=== PATIENT | female | born 1960 | race Caucasian/White ===

== ENCOUNTER → 2019-09-18 13:19 | Outpatient (BNVA) | payer MEDICARE, MEDICAID, SELFPAY | PROVIDERS: Family Provider Nurse Practitioner Family; PCP Nurse Practitioner Family; Visit Provider Nurse Practitioner Family | DX: I10 Essential (primary) hypertension (principal); F32.9 Major depressive disorder, single episode, unspecified; K21.9 Gastro-esophageal reflux disease without esophagitis; M25.561 Pain in right knee; G89.29 Other chronic pain; M25.562 Pain in left knee | CPT/HCPCS: 80053; 83036; 83735; 85025 ==

== ENCOUNTER → 2019-10-26 14:15 | Outpatient (BNVA) | payer MEDICARE, MEDICAID, SELFPAY | PROVIDERS: Family Provider Nurse Practitioner Family; PCP Nurse Practitioner Family; Visit Provider Anesthesiology | DX: G89.29 Other chronic pain (principal); M54.5 Low back pain; M25.561 Pain in right knee; M25.562 Pain in left knee; Z79.891 Long term (current) use of opiate analgesic | CPT/HCPCS: 99214 ==

== ENCOUNTER 2020-03-01 17:27 | Emergency (ER) | payer MEDICARE, MEDICAID, SELFPAY ==
[2020-03-01 17:43] VITALS: BP 161/122; PULSE 90; RESP 20; TEMP 37.1; O2SAT 95; BMI 42.9
--- NOTE | 2020-03-01 18:19 | W.ED.DENTAL ---
HPI - Dental/Oral General: Chief complaint: Dental/Oral Stated complaint: COV Time Seen by Provider: 03/01/20 17:51 History of Present Illness: HPI Narrative: Patient is a 59-year-old female who comes to the ED with dental pain and swelling. She was seen by her PCP in [facility] 3 days ago and was given a prescription for clindamycin and told to schedule appointment with dentist. Patient says she has been taking the clindamycin and redness on face and swelling has gotten worse after 3 days. She says her pain also has increased. She contacted her PCP and they told her to come here to the ED for reevaluation. Denies any fever, nausea/vomiting, bladder or bowel symptoms. Associated symptoms: Denies fever(s) or odynophagia Review of Systems Const: Denies: fever(s), chills or fatigue Eyes: Denies: change in vision or eye discomfort ENMT: Reports: mouth pain and dental pain; Denies: throat pain, odynophagia, nasal discharge or nasal congestion Card: Denies: chest pain, palpitations, edema, swelling of feet/ankles, dyspnea on exertion or orthopnea Resp: Denies: dyspnea, productive cough or non-productive cough GI: Denies: abdominal pain, nausea, vomiting, diarrhea, constipation or hematochezia : Denies: flank pain, dysuria or hematuria Musc: Denies: neck pain, back pain or extremity swelling Skin/Breast: Denies: rash or new lesions Neuro: Denies: headache(s), numbness in extremities or weakness in extremities PFS ED PFSH: Medical History Chronic pain of both knees Patient has fair control of pain with current treatment through pain management. Patient is taking [place] and Ultram Depression Patient is well controlled with Cymbalta 80mg. Encounter for long-term use of opiate analgesic GERD (gastroesophageal reflux disease) Patient is well controlled with Prilosec 40mg daily Hypertension Patient is well controlled with Lisinopril 20mg Opioid contract exists Social History Smoking and tobacco status: current some day smoker Quit status (tobacco): has quit using tobacco Second hand smoke exposure: No Smoking risk assessment/counseling performed?: No Alcohol intake: never Desire information about alcohol rehabilitation?: No Counseling given: No Desire information about substance/drug rehabilitation?: No Counseling given: No History of recent travel: No Physical Exam Const: COMMON NORMALS: no acute distress, patient oriented x3 and alert GENERAL APPEARANCE: cooperative; not comfortable (pt in some pain and discmfort) HENMT: COMMON NORMALS: normocephalic HEAD & SCALP: normocephalic MOUTH: Normal oral and palatal mucosa present TEETH & GINGIVA: Yes abnormal tooth and associated gingiva lower right central incisor tender and with associated gingival edema and Yes caries THROAT: posterior oropharynx normal and uvula midline Eye: COMMON NORMALS: Equal, round and reactive pupils present PUPIL: Yes Equal, round and reactive pupils present Neck/C-Spine: COMMON NORMALS: supple GENERAL: Yes normal visual inspection Resp: COMMON NORMALS: normal respiratory effort, No retractions, No use of accessory muscles and clear to auscultation bilaterally AUSCULTATION: clear to auscultation bilaterally Cardio: COMMON NORMALS: regular rate, regular rhythm, S1 normal heart sound present, S2 normal heart sound present, No gallops present (Cardio), No clicks present (Cardio), No murmurs present (Cardio) and Peripheral pulses 2+ throughout RATE: regular rate RHYTHM: regular rhythm HEART SOUNDS: S1 normal heart sound present and S2 normal heart sound present PERIPHERAL PULSES: Peripheral pulses 2+ throughout GI: COMMON NORMALS: Normal to inspection, nondistended, normoactive bowel sounds present, Soft to palpation, non-tender and no masses PALPATION: Yes Soft to palpation : COMMON NORMALS: Yes no CVA tenderness BLADDER/KIDNEY EXAM: Yes no CVA tenderness Back/Pelvis: COMMON NORMALS: no CVA tenderness Extremity: COMMON NORMALS: normal to inspection and no pedal edema Neuro: COMMON NORMALS: patient oriented x3 and moves all extremities SENSORIUM/ORIENTATION: Yes alert Skin: NARRATIVE SKIN EXAM: Skin on the chin was red and warm. Redness and warmth extended down into the neck as well. Is also tender to the touch. GENERAL SKIN EXAM: dry skin Course Vital Signs: Vital signs: Vital Signs Temperature 98.7 F 03/01/20 17:43 Pulse Rate 98 03/01/20 20:56 Respiratory Rate 14 03/01/20 20:56 Blood Pressure 118/74 06/19/20 20:56 Pulse Oximetry 93 03/01/20 20:56 MDM - Dental/Oral MDM Narrative: Medical decision making narrative: Patient is a 59-year-old female that was sent over to us by PCP for further evaluation of dental pain and infection. Physical exam showed extensive dental caries and some erythema and warmth and tenderness on the chin and neck. No airway obstruction or trouble breathing. white blood cell count was 14.2. CT of the neck litis and suspected 1.0 cm abscess along the anterior aspect of themandible, just to the right of midline.Periodontal disease and periapical lucency within multiple lower anterior teeth. Patient was put on IV antibiotics while here in the ED. She was discharged with dental abscess and told to contact dentist to set up an appointment for further evaluation and treatment. She was told to continue taking her previously prescribed clindamycin. Patient understood and agreed with plan. Lab Data: Attestation: I reviewed the patient's lab results. Labs: Lab Results 03/01/20 03/01/20 Range/Units 18:50 18:50 WBC 14.2 H (4.0-10.0) 10^3/ uL RBC 5.12 (4.1-5.3) 10^6/u L Hgb 13.2 (11.5-15.3) g/dL Hct 43.7 (37.0-47.0) % MCV 85.4 (81-99) fL MCH 25.8 L (28.0-34.0) pg MCHC 30.2 (30.0-36.0) g/dL RDW 14.6 (12.1-15.1) % Plt Count 246 (130-400) 10^3/c mm MPV 11.1 H (7.4-10.4) fL Neut % (Auto) 75.7 % Lymph % (Auto) 15.7 % [place] % (Auto) 6.3 % Eos % (Auto) 1.2 % Baso % (Auto) 0.7 % Neut # (Auto) 10.7 H (1.8-7.7) 10^3/u L Lymph # (Auto) 2.2 (0.8-4.8) 10^3/u L [place] # (Auto) 0.9 (0.2-0.9) 10^3/u L Eos # (Auto) 0.2 (0.0-0.8) 10^3/u L Baso # (Auto) 0.1 (0.0-0.1) 10^3/u L Nucleated RBC % (a uto) 0 % Nucleated RBCs # 0.0 /100WBC Sodium 135 L (136-145) mmol/L Potassium 4.8 (3.5-5.1) mmol/L Chloride 95 L (98-107) mmol/L Carbon Dioxide 25 (22-29) mmol/L Anion Gap 19.8 H (5-19) BUN 17 (6-20) mg/dL Creatinine 0.7 (0.5-0.9) mg/dL GFR Calculation 85.9 L (90-130) mL/min Glucose 119 H (65-115) mg/dL Calculated Osmolal ity 278 L (285-295) mOsm/k g Calcium 9.4 (8.5-10.5) mg/dL Total Bilirubin 0.3 (0.15-1.2) mg/dL AST 15 (0-32) U/L ALT 11 (0-33) U/L Alkaline Phosphata se 92 (35-105) IU/L Total Protein 8.0 (6.6-8.7) g/dL Albumin 4.1 (3.5-5.2) g/dL Globulin 3.9 (1.3-4.6) g/dL Imaging Data^: Other CT: Attestation: I personally reviewed and interpreted this imaging study as follows: Radiologist's impression: [place] [address] CT Scan Report Signed Patient: Barb Parmar Unit #: [id number] : 1960 Age/Sex: 59 / F ADM Date: 03/01/20 Loc: ER Room/Bed: Attending Dr: Ordering Provider/Ordering MD: Brendon Anne Date of Service: 03/01/20 Procedure(s): CT neck w con* [id number] Accession Number(s): [id number] Report Number: [id number] PROCEDURE INFORMATION: Exam: CT Neck With Contrast Exam date and time: 03/01/2020 6:46 PM Age: 59 years old Clinical indication: Mass, lump, or swelling in neck; Patient HX: C/O facial, jaw, and neck swelling; Additional info: Erythema and swelling-neck and mandible TECHNIQUE: Imaging protocol: Computed tomography images of the neck with intravenous contrast. Radiation optimization: All CT scans at this facility use at least one of these dose optimization techniques: automated exposure control; mA and/or kV adjustment per patient size (includes targeted exams where dose is matched to clinical indication); or iterative reconstruction. Contrast material: OMNI 300; Contrast volume: 95 ml; Contrast route: INTRAVENOUS (IV); COMPARISON: No relevant prior studies available. RADIATION DOSE METRICS: Total DLP (mGy-cm): 771.69 FINDINGS: Nasopharynx: Unremarkable. Dental: Multiple missing upper and lower teeth. There is lucency surrounding the roots of multiple lower anterior teeth. There is destruction of the anterior bone cortex surround the roots of the lower left 1st and 2nd teeth. Oropharynx: Unremarkable. No significant tonsillar enlargement. Hypopharynx: Unremarkable. Larynx: Unremarkable. Normal epiglottis. Retropharyngeal space: Unremarkable. Submandibular/Parotid glands: Normal. Glands are normal in size. Thyroid: Normal. No enlarged or calcified nodules. Lymph nodes: Subcentimeter cervical and submandibular lymph nodes are most likely reactive. Subcentimeter mediastinal lymph nodes are most likely reactive. Trachea: Visualized trachea is unremarkable. Lungs: Unremarkable as visualized. Bones/joints: C6 corpectomy with metal cage. Anterior fusion hardware spanning C5-C7. Vasculature: Right carotid bulb plaque without stenosis. Soft tissues: Mild skin thickening and subcutaneous soft tissue stranding along the anterior body of the mandible. There is a 1.0 cm focal oval fluid density along the anterior aspect of the mandible, just to the right of midline. The suspicious for a small abscess. CT/CT neck w con* [id number] IMPRESSION: 1. Cellulitis and suspected 1.0 cm abscess along the anterior aspect of the mandible, just to the right of midline. 2. Periodontal disease and periapical lucency within multiple lower anterior teeth. Radiation Dose CTDIVOL = (mGy): DLP = 771.69 (mGy-cm) Dictated By: Donal Doan Signed By: Donal Doan Signed Date/Time: 03/01/201931 DD/ 1931 Discharge Plan Discharge Patient Disposition: Home, Self-Care Clinical Impression: Dental abscess, Dental caries Condition: Stable Prescriptions: No Action Complete Multivitamin Tablet 1 tab PO QAM RF: 0 diclofenac sodium 1 % gel 2 gm TOPICAL BID PRN (Reason: joint pain) Qty: 100 RF: 5 duloxetine 20 mg capsule,delayed release(DR/EC) 20 mg PO DAILY 30 Days Qty: 30 RF: 1 duloxetine 60 mg capsule, delayed rel sprinkle 60 mg PO DAILY 90 Days Qty: 90 RF: 1 clindamycin HCl 300 mg capsule 300 mg PO TID 10 Days Qty: 30 RF: 0 hydrocodone-acetaminophen 10-325 mg tablet 1 tab PO TID PRN (Reason: pain) 30 Days Qty: 90 RF: 0 hydrocodone-acetaminophen 10-325 mg tablet 1 tab PO TID PRN (Reason: pain) 30 Days Qty: 90 RF: 0 tramadol 50 mg tablet 100 mg PO TID PRN (Reason: pain) 30 Days Qty: 180 RF: 1 baclofen 20 mg tablet 20 mg PO TID PRN (Reason: Bilateral knee pain) 30 Days Qty: 90 RF: 0 cyclobenzaprine 10 mg tablet See Rx Instructions PO BID PRN (Reason: muscle spasm) 30 Days Qty: 60 RF: 1 omeprazole 40 mg capsule,delayed release(DR/EC) 40 mg PO .q24 30 Days Qty: 30 RF: 2 lisinopril 20 mg tablet 20 mg PO DAILY 30 Days Qty: 30 RF: 2 Discharge Orders: Discharge Order (Routine); Ordered 03/01/20 Ordered By: Brendon Anne Referrals: VIPIN Deleon, INTERN PRODUCT MARKETING MANAGER [Primary Care Provider] - Discharge Diet: Regular Discharge Activity: Resume usual activity Patient Instructions: Dental Abscess (ED), Dental Caries (ED) Activity Restrictions/Additional Instructions: Continue taking all home medications including your clindamycin. Take your previously prescribed pain meds to help with pain. Drink plenty of fluids and stay hydrated. Call dentist to set up JOE to get an appointment scheduled for you to be evaluated. Discharge Date/Time: 03/01/20 19:58 Coding Level of Care Code ED [place] Line Crew Member for Keving Fwd Exam Comprehensive
[2020-03-01 18:56] VITALS: RESP 18; O2SAT 98
[2020-03-01] MEDS: morphine 4 mg/mL SDV 1 mL 2 MG IVP (18:56)
[2020-03-01] MEDS: ondansetron 2 mg/ML SDV 2 mL 4 MG IVP (18:57)
[2020-03-01] MEDS: clindamycin 600 MG/50 ML PREMIX 100 MG IV (18:58)
--- NOTE | 2020-03-01 19:03 | PC.NURSE ---
report received from JACKSON Bethea and care transferred to JACKSON Pettit
[2020-03-01 19:04] LABS: Basophils # 0.1 10^3/uL (0.0-0.1); Basophils % 0.7 %; Eosinophils # 0.2 10^3/uL (0.0-0.8); Eosinophils % 1.2 %; Hematocrit 43.7 % (37.0-47.0); Hemoglobin 13.2 g/dL (11.5-15.3); Lymphocytes # 2.2 10^3/uL (0.8-4.8); Lymphocytes % 15.7 %; Mean Corpuscular HGB Conc 30.2 g/dL (30.0-36.0); Mean Corpuscular Hemoglobin 25.8 pg (28.0-34.0); Mean Corpuscular Volume 85.4 fL (81-99); Mean Platelet Volume 11.1 fL (7.4-10.4); Monocytes # 0.9 10^3/uL (0.2-0.9); Monocytes % 6.3 %; Neutrophils # 10.7 10^3/uL (1.8-7.7); Neutrophils % 75.7 %; Nucleated Red Blood Cells % 0 %; Platelet Count 246 10^3/cmm (130-400); Red Blood Count 5.12 10^6/uL (4.1-5.3); Red Cell Distribution Width 14.6 % (12.1-15.1); White Blood Count 14.2 10^3/uL (4.0-10.0)
[2020-03-01] MEDS: iohexol 300 mg/mL 100 mL Btl 95 ML IV (19:14)
[2020-03-01 19:45] LABS: Alanine Aminotransferase 11 U/L (0-33); Albumin Level 4.1 g/dL (3.5-5.2); Alkaline Phosphatase 92 IU/L (35-105); Anion Gap 19.8 (5-19); Aspartate Amino Transferase 15 U/L (0-32); Blood Urea Nitrogen 17 mg/dL (6-20); Calcium 9.4 mg/dL (8.5-10.5); Carbon Dioxide 25 mmol/L (22-29); Chloride 95 mmol/L (98-107); Globulin 3.9 g/dL (1.3-4.6); Glomerular Filtration Rate 85.9 mL/min (90-130); Glucose 119 mg/dL (65-115); Osmolality Calculated 278 mOsm/kg (285-295); Potassium 4.8 mmol/L (3.5-5.1); Sodium 135 mmol/L (136-145); Total Bilirubin 0.3 mg/dL (0.15-1.2)
[2020-03-01 20:11] VITALS: BP 188/101; PULSE 96; RESP 14; O2SAT 93
[2020-03-01] MEDS: ketorolac 30 mg/mL INJ IVP (20:30)
[2020-03-01 20:56] VITALS: BP 118/74; PULSE 98; RESP 14; O2SAT 93
== END 2020-03-01 19:58 | disposition home or self-care (01) ==
PROVIDERS: Emergency Provider Physician Assistant; Family Provider Nurse Practitioner Family; PCP Nurse Practitioner Family
DX: K04.7 Periapical abscess without sinus (principal); K02.9 Dental caries, unspecified; I10 Essential (primary) hypertension; F17.210 Nicotine dependence, cigarettes, uncomplicated
CPT/HCPCS: 12345; 70491; 80053; 85025; 87040; 96365; 96375; 99283; J1885; J2270; J2405; J3490; J7030; Q9967

== ENCOUNTER 2020-03-04 15:34 | Outpatient (CLI) | payer MEDICARE, MEDICAID, SELFPAY ==
--- NOTE | 2020-03-04 15:59 | MR_ITS ---
WS: [id number] MRI LUMBAR SPINE NONCONTRAST TECHNIQUE: Sagittal T1, T2 and STIR imaging. Axial T1 and T2 imaging. CLINICAL INFORMATION: M54.5 Low back pain COMPARISON: MRI July 28, 2018 FINDINGS: Mild lumbar curve. No acute compression. No high-grade central canal stenosis. Mild spondylitic aguilar es lumbar spine with disc bulging. Prior postoperative changes L4-5 hemilaminectomy with partial disc ectomy. Spinal canal stenosis has been decompressed.No evidence recurrent disc extrusion or recurrent stenosis at L4-5 T12-L1: Mild disc bulging with mild central canal stenosis and slight effacement of the ventral theca l sac. L1-L2: Mild annular bulging. Mild right and no significant left foraminal narrowing. Mild facet arthr opathy. L2-L3: Mild annular bulging with slight narrowing of the subarticular recess bilaterally. Mild left g reater than right foraminal narrowing. Mild facet arthropathy. L3-L4: Mild annular bulging with moderate central canal stenosis. Right foraminal protrusion contacts the exiting right L3 nerve root with moderate right and mild left foraminal narrowing. Moderate face t arthropathy. L4-L5: Postoperative changes hemilaminectomy and Partial discectomy. Right foraminal protrusion with moderate right foraminal narrowing contacts the exiting right L4 nerve root. Left foramen is patent. Moderate facet arthropathy. L5-S1: Mild annular bulging with a tiny annular fissure. Mild right greater than left foraminal narro wing. Visualized pelvic bony structures: Normal. Paravertebral soft tissues: Normal. Overall no significant changes since July 28, 2018 MR/MR lumbar spine wo con* [id number] IMPRESSION: 1. Mild lumbar curve. No acute compression. No high-grade central canal stenosi s. 2. Postoperative changes L4-5 hemilaminectomy and partial discectomy unchanged from previous. No recurrent stenosis at this level. 3. Right foraminal protrusion L4-5 impinges the exiting right L4 nerve root. Re commend correlation for right L4 nerve root symptoms. This is unchanged 4. Mild central canal stenosis at T12-L1 and L2-L3 unchanged. 5. Moderate central canal stenosis L3-4 with crowding of the cauda equina nerve rootlets, unchanged. 6. Unchanged multilevel mild to moderate foraminal narrowing at left L2-3, righ t L3-4, and bilateral L5-S1 right greater than left. 7. Cholelithiasis. This can be followed up with ultrasound.
== END 2020-03-04 15:35 | disposition home or self-care (01) ==
LOC: RADWPI 15:41
PROVIDERS: Family Provider Nurse Practitioner Family; PCP Nurse Practitioner Family; Visit Provider Nurse Practitioner Family
DX: M51.26 Other intervertebral disc displacement, lumbar region (principal); M48.04 Spinal stenosis, thoracic region; M48.061 Spinal stenosis, lumbar region without neurogenic claudication; K80.20 Calculus of gallbladder without cholecystitis without obstruction
CPT/HCPCS: 72148

== ENCOUNTER 2020-03-26 12:49 | Outpatient (CLI) | payer MEDICARE, MEDICAID, SELFPAY ==
--- NOTE | 2020-03-26 13:05 | MR_ITS ---
WS: [id number] INDICATION: Low back pain. Follow-up to noncontrast MRI March 04, 2020 TECHNIQUE: Sagittal and axial postgadolinium T1 imaging with fat saturation technique FINDINGS: Comparison MRI March 04, 2020. Images somewhat limited due to motion artifact. Evidence of prior postoperative changes L4-5 hemilaminectomy and partial discectomy. No evidence of r ecurrent disc extrusion at the L4-5 level. Enhancing normal postoperative changes. Right foraminal L4-5 protrusion impinges the exiting L4 nerve root. This is unchanged. Mild central canal stenosis at T12-L1 and L2-3 unchanged. Moderate to severe central canal stenosis a t L3-4 with crowding of the cauda equina nerve rootlets is stable. In addition, mild clumping of the cauda equina nerve rootlets at L4-5 can be seen with arachnoiditis. Otherwise no changes from the rec ent examination. MR/MR lumbar spine w con [id number] IMPRESSION: 1. Prior postoperative changes L4-5 laminectomy defects with partial discectom y. No recurrent disc extrusion 2. Moderate to severe central canal stenosis L3-4 due to prominent dorsal epid ural fat in combination with mild disc bulging and moderate facet arthropathy. Crowding of the cauda equina nerve rootlets at this level. 3. Mild clumping of the cauda equina nerve rootlets at L4-5 can be seen with a rachnoiditis. 4. No evidence of recurrent disc extrusion. 5. Other findings unchanged from previous.
--- NOTE | 2020-03-26 13:45 | XR_ITS ---
WS: [id number] Lumbar spine with flexion, extension, and neutral lateral, 03/26/2020 Clinical Data: Low back pain Comparison: Lateral lumbar spine, 11/14/2015. Findings: No compression fractures or subluxation is seen. Degenerative disc narrowing is seen at all disc leve ls from L2-L3 through L4-L5. There is straightening of the lateral lumbar spine.No subluxation is pre sent. On flexion and extension there is limitation of motion. XR/XR lumbar spine f/e only [id number] Impression: 1. Osteoarthritic change from L2 through L5. 2. Multilevel degenerative disc narrowing. 3. Limitation of motion on flexion and extension.
== END 2020-03-26 12:50 ==
LOC: RADWPI 12:52
PROVIDERS: Family Provider Nurse Practitioner Family; PCP Nurse Practitioner Family; Visit Provider Licensed Practical Nurse
DX: G89.29 Other chronic pain (principal); M51.17 Intervertebral disc disorders with radiculopathy, lumbosacral region; M48.062 Spinal stenosis, lumbar region with neurogenic claudication; M25.561 Pain in right knee; M25.562 Pain in left knee; M96.1 Postlaminectomy syndrome, not elsewhere classified; F17.210 Nicotine dependence, cigarettes, uncomplicated; Z98.890 Other specified postprocedural states; Z79.891 Long term (current) use of opiate analgesic
CPT/HCPCS: 72120; 72149; 99213; 99214; A9579

== ENCOUNTER → 2020-05-06 14:55 | Outpatient (BNVA) | payer MEDICARE, MEDICAID, SELFPAY | PROVIDERS: Family Provider Nurse Practitioner Family; PCP Nurse Practitioner Family; Visit Provider Licensed Practical Nurse | DX: M51.17 Intervertebral disc disorders with radiculopathy, lumbosacral region (principal); M48.062 Spinal stenosis, lumbar region with neurogenic claudication; M96.1 Postlaminectomy syndrome, not elsewhere classified; Z98.890 Other specified postprocedural states; E66.01 Morbid (severe) obesity due to excess calories; Z68.41 Body mass index [BMI] 40.0-44.9, adult; F17.210 Nicotine dependence, cigarettes, uncomplicated | CPT/HCPCS: 99213 ==

== ENCOUNTER → 2020-05-22 10:26 | Outpatient (BNVA) | payer MEDICARE, MEDICAID, SELFPAY | PROVIDERS: Family Provider Nurse Practitioner Family; PCP Nurse Practitioner Family; Visit Provider Anesthesiology | DX: G89.29 Other chronic pain (principal); M48.062 Spinal stenosis, lumbar region with neurogenic claudication; M51.17 Intervertebral disc disorders with radiculopathy, lumbosacral region; M96.1 Postlaminectomy syndrome, not elsewhere classified; M25.561 Pain in right knee; M25.562 Pain in left knee; F17.210 Nicotine dependence, cigarettes, uncomplicated; Z99.89 Dependence on other enabling machines and devices; Z98.890 Other specified postprocedural states; Z79.891 Long term (current) use of opiate analgesic | CPT/HCPCS: 99214 ==

== ENCOUNTER 2020-07-02 16:33 | Emergency (ER) | payer MEDICARE, MEDICAID, SELFPAY ==
[2020-07-02 17:06] VITALS: BP 159/91; PULSE 72; RESP 20; TEMP 36.7; O2SAT 97; BMI 44.6
--- NOTE | 2020-07-02 18:15 | W.ED.BACK ---
HPI - Back Pain/Injury General: Chief Complaint: Back Pain/Injury Stated Complaint: kidney pain Time Seen by Provider: 07/02/20 18:11 History of Present Illness: HPI Narrative: Presents with sciatica but want to be checked for renal failure said she is feeling kind of weird she said last time she went to renal failure she presented the same way said her sciatica started to act up to the left side MD elicited complaint: back pain Pertinent past history: prior back pain Onset (ago): day(s) Timing: constant Severity: moderate Similar Symptoms Previously: Yes Quality: sharp and aching Location: left lower back Radiation: left upper leg and left leg below the knee Exacerbating factors: movement Relieving factors: immobilization Context: unknown Associated symptoms: Reports other (Patient says she just feels weird and want to check for renal failure apparently has history of this); Deny abdominal pain, chills, fever(s), nausea or vomiting Work related injury: No Review of Systems Const: Denies: fever(s), chills or body aches Eyes: Denies: change in vision or blurry vision ENMT: Denies: throat pain or nasal congestion Card: Denies: chest pain or dyspnea on exertion Resp: Denies: dyspnea, productive cough or non-productive cough GI: Denies: abdominal pain, nausea or vomiting Musc: Reports: back pain; Denies: extremity pain Skin/Breast: Denies: rash Neuro: Denies: headache(s) Psych: Reports: visual hallucinations; Denies: anxiety or depression Alfred/Lymph: Denies: easy bruising PFS ED PFSH: Medical History (Updated 07/02/20 @ 19:33 by LEONORA Osborne) Chronic pain of both knees Patient has fair control of pain with current treatment through pain management. Patient is taking [place] and Ultram Depression Patient is well controlled with Cymbalta 80mg. Encounter for long-term use of opiate analgesic GERD (gastroesophageal reflux disease) Patient is well controlled with Prilosec 40mg daily Hypertension Patient is well controlled with Lisinopril 20mg Intervertebral disc disorder with radiculopathy of lumbosacral region Lumbar post-laminectomy syndrome 01/13/2016 bilateral L4-L5 hemilaminotomy/discectomy/foraminotomy Lumbar stenosis with neurogenic claudication Morbid obesity with BMI of 40.0-44.9, adult Opioid contract exists Surgical History History of cervical spinal surgery 08/04/2010 Dr. Aleksander Juarez. C5-C6, C6-C7 ACDFF, C6 corpectomy. History of lumbar surgery 01/13/2016 Dr. Aleksander Juarez. Bilateral L4-L5 hemilaminotomy/discectomy/ foraminotomy History of shoulder surgery Family History Other Family history non-contributory Social History (Updated 05/22/20 @ 11:23 by Brenda Carrillo LPN) Smoking and tobacco status: current some day smoker Alcohol intake: never Household members: spouse Marital status: Current occupational status: disabled History of recent travel: No Physical Exam Const: COMMON NORMALS: no acute distress, average body habitus and patient oriented x3 HENMT: COMMON NORMALS: normocephalic HEAD & SCALP: normal to inspection and normocephalic FACE & SINUS: normal facial exam Eye: COMMON NORMALS: conjunctivae normal GENERAL EYE: appearance normal, both eyes and all related structures CONJUNCTIVA: Yes conjunctivae normal Neck/C-Spine: COMMON NORMALS: no JVD Chest: COMMONS NORMALS: normal inspection of the chest Resp: COMMON NORMALS: normal respiratory effort and clear to auscultation bilaterally AUSCULTATION: clear to auscultation bilaterally Cardio: COMMON NORMALS: no JVD, regular rate and regular rhythm RATE: regular rate RHYTHM: regular rhythm GI: COMMON NORMALS: Normal to inspection, nondistended, normoactive bowel sounds present Extremity: COMMON NORMALS: normal to inspection and full ROM OTHER: Tenderness left sciatic buttock down to upper leg Neuro: COMMON NORMALS: patient oriented x3 Course Vital Signs: Vital signs: Vital Signs Temperature 98.1 F 07/02/20 17:06 Pulse Rate 72 07/02/20 17:06 Respiratory Rate 20 H 07/02/20 17:06 Blood Pressure 159/91 07/02/20 17:06 Pulse Oximetry 97 07/02/20 17:06 MDM - Back Pain/Injury Lab Data: Labs: Lab Results 07/02/20 07/02/20 07/02/20 Range/Units 18:12 18:30 18:30 WBC 9.4 (4.0-10.0) 10^3/ uL RBC 5.64 H (4.1-5.3) 10^6/u L Hgb 13.7 (11.5-15.3) g/dL Hct 45.5 (37.0-47.0) % MCV 80.7 L (81-99) fL MCH 24.3 L (28.0-34.0) pg MCHC 30.1 (30.0-36.0) g/dL RDW 16.9 H (12.1-15.1) % Plt Count 263 (130-400) 10^3/c mm MPV 11.7 H (7.4-10.4) fL Neut % (Auto) 61.8 % Lymph % (Auto) 27.9 % [place] % (Auto) 6.8 % Eos % (Auto) 2.4 % Baso % (Auto) 0.9 % Neut # (Auto) 5.79 (1.8-7.7) 10^3/u L Lymph # (Auto) 2.6 (0.8-4.8) 10^3/u L [place] # (Auto) 0.6 (0.2-0.9) 10^3/u L Eos # (Auto) 0.2 (0.0-0.8) 10^3/u L Baso # (Auto) 0.1 (0.0-0.1) 10^3/u L Nucleated RBC % (a uto) 0 % Nucleated RBCs # 0.0 /100WBC Sodium 134 L (136-145) mmol/L Potassium 4.4 (3.5-5.1) mmol/L Chloride 96 L (98-107) mmol/L Carbon Dioxide 27 (22-29) mmol/L Anion Gap 15.4 (5-19) BUN 14 (6-20) mg/dL Creatinine 0.8 (0.5-0.9) mg/dL GFR Calculation 73.4 L (90-130) mL/min Glucose 115 (65-115) mg/dL Calculated Osmolal ity 279 L (285-295) mOsm/k g Calcium 9.7 (8.5-10.5) mg/dL Total Bilirubin 0.4 (0.15-1.2) mg/dL AST 18 (0-32) U/L ALT 13 (0-33) U/L Alkaline Phosphata se 94 (35-105) IU/L Total Protein 7.7 (6.6-8.7) g/dL Albumin 4.4 (3.5-5.2) g/dL Globulin 3.3 (1.3-4.6) g/dL Urine Color Yellow (Yellow) Urine Appearance Hazy A (CLEAR) Urine pH 7 (5-7) Ur Specific Gravit y 1.005 (1.005-1.030) Urine Protein Neg (Negative) Urine Glucose (UA) Norm (Normal) Urine Ketones Negative (Negative) Urine Blood Neg (Negative) Urine Nitrate Negative (Negative) Urine Bilirubin Neg (Negative) Urine Urobilinogen Norm (Negative) mg/dL Ur Leukocyte Ilda ase Negative (Negative) Urine RBC None (0-2) /hpf Urine WBC 0-4 H (0-5) /hpf Ur Squamous Epith Cells 15-25 H (0-5) /hpf Amorphous Sediment Not Reportable Urine Bacteria 2+ H (NONE) /hpf Discharge Plan Discharge Patient Disposition: Home Clinical Impression: Sciatic leg pain Condition: Stable Prescriptions: No Action Complete Multivitamin Tablet 1 tab PO QAM RF: 0 cyanocobalamin (vitamin B-12) Tablet,Chewable PO DAILY RF: 0 calcium carbonate [Calcium 500] 500 mg calcium (1,250 mg) tablet,chewable 500 mg PO DAILY RF: 0 melatonin 10 mg capsule 10 mg PO DAILY PRNRF: 0 baclofen 20 mg tablet 20 mg PO TID PRN (Reason: Bilateral knee pain) 30 Days Qty: 90 RF: 1 hydrocodone-acetaminophen 10-325 mg tablet 1 tab PO TID PRN (Reason: pain) 30 Days Qty: 90 RF: 0 hydrocodone-acetaminophen 10-325 mg tablet 1 tab PO TID PRN (Reason: pain) 30 Days Qty: 90 RF: 0 tramadol 50 mg tablet 100 mg PO TID PRN (Reason: pain) 30 Days Qty: 180 RF: 1 cyclobenzaprine 10 mg tablet See Rx Instructions PO BID PRN (Reason: muscle spasm) 30 Days Qty: 60 RF: 1 duloxetine 60 mg capsule, delayed rel sprinkle 60 mg PO DAILY 90 Days Qty: 90 RF: 1 clindamycin HCl 300 mg capsule 300 mg PO TID 10 Days Qty: 30 RF: 0 lisinopril 20 mg tablet 20 mg PO DAILY 30 Days Qty: 30 RF: 2 diclofenac sodium 1 % gel 2 gm TOPICAL BID PRN (Reason: joint pain) Qty: 100 RF: 5 duloxetine 20 mg capsule,delayed release(DR/EC) 20 mg PO DAILY 30 Days Qty: 30 RF: 1 omeprazole 40 mg capsule,delayed release(DR/EC) 40 mg PO .q24 30 Days Qty: 30 RF: 2 Discharge Orders: Discharge Order (Routine); Ordered 07/02/20 Ordered By: Zachariah Blum Referrals: VIPIN Deleon, SLURRY CONTROL OPERATOR HELPER [Primary Care Provider] - Discharge Diet: Usual diet Discharge Activity: Increase activity as tolerated Patient Instructions: Sciatica (ED) Activity Restrictions/Additional Instructions: Follow-up with medical provider as directed. Symptoms of urinary tract infection occur such as frequent urination and just voiding small amounts of urine follow-up with your primary care provider and get another urine sample provided return to the ER or your medical provider if condition worsens. Please read and understand discharge instructions. If any questions ask please. Discharge Date/Time: 07/02/20 19:44 Coding Level of Care Code ED Care Provider for Keving Fwd Exam Comprehensive
[2020-07-02 19:01] LABS: Add Urine Microscopic? YES; Bilirubin Urine Neg (Negative); Blood Urine Neg (Negative); Glucose Urine UA Norm (Normal); Ketones Urine Negative (Negative); Leukocyte Esterase Urine Negative (Negative); Nitrate Urine Negative (Negative); Protein Urine Neg (Negative); Specific Gravity, Urine 1.005 (1.005-1.030); Urine Appearance Hazy (CLEAR); Urine Color Yellow (Yellow); Urobilinogen Urine Norm (Negative); pH Urine 7 (5-7)
[2020-07-02 19:11] LABS: Basophils # 0.1 10^3/uL (0.0-0.1); Basophils % 0.9 %; Eosinophils # 0.2 10^3/uL (0.0-0.8); Eosinophils % 2.4 %; Hematocrit 45.5 % (37.0-47.0); Hemoglobin 13.7 g/dL (11.5-15.3); Lymphocytes # 2.6 10^3/uL (0.8-4.8); Lymphocytes % 27.9 %; Mean Corpuscular HGB Conc 30.1 g/dL (30.0-36.0); Mean Corpuscular Hemoglobin 24.3 pg (28.0-34.0); Mean Corpuscular Volume 80.7 fL (81-99); Mean Platelet Volume 11.7 fL (7.4-10.4); Monocytes # 0.6 10^3/uL (0.2-0.9); Monocytes % 6.8 %; Neutrophils # 5.79 10^3/uL (1.8-7.7); Neutrophils % 61.8 %; Nucleated Red Blood Cells % 0 %; Platelet Count 263 10^3/cmm (130-400); Red Blood Count 5.64 10^6/uL (4.1-5.3); Red Cell Distribution Width 16.9 % (12.1-15.1); White Blood Count 9.4 10^3/uL (4.0-10.0)
[2020-07-02 19:28] LABS: Add Urine Culture? No; Bacteria Urine 2+ /hpf; Squamous Epithelial Cell Urine 15-25 /hpf (0-5); WBC Urine 0-4 /hpf (0-5)
[2020-07-02 19:29] LABS: Alanine Aminotransferase 13 U/L (0-33); Albumin Level 4.4 g/dL (3.5-5.2); Alkaline Phosphatase 94 IU/L (35-105); Anion Gap 15.4 (5-19); Aspartate Amino Transferase 18 U/L (0-32); Blood Urea Nitrogen 14 mg/dL (6-20); Calcium 9.7 mg/dL (8.5-10.5); Carbon Dioxide 27 mmol/L (22-29); Chloride 96 mmol/L (98-107); Creatinine Clr Calc Pharmacy 95.6174; Globulin 3.3 g/dL (1.3-4.6); Glomerular Filtration Rate 73.4 mL/min (90-130); Glucose 115 mg/dL (65-115); Osmolality Calculated 279 mOsm/kg (285-295); Potassium 4.4 mmol/L (3.5-5.1); Sodium 134 mmol/L (136-145); Total Bilirubin 0.4 mg/dL (0.15-1.2); Total Protein 7.7 g/dL (6.6-8.7)
== END 2020-07-02 19:44 | disposition home or self-care (01) ==
PROVIDERS: Emergency Provider Nurse Practitioner Family; PCP Nurse Practitioner Family
DX: M54.32 Sciatica, left side (principal); I10 Essential (primary) hypertension; F17.210 Nicotine dependence, cigarettes, uncomplicated
CPT/HCPCS: 12345; 80053; 81001; 85025; 99282

== ENCOUNTER → 2020-07-16 11:42 | Outpatient (BNVA) | payer MEDICARE, MEDICAID, SELFPAY | PROVIDERS: PCP Nurse Practitioner Family; Visit Provider Nurse Practitioner Family | DX: R53.83 Other fatigue (principal) | CPT/HCPCS: 80053; 84443; 85025 ==

== ENCOUNTER → 2020-07-22 12:13 | Outpatient (BNVA) | payer MEDICARE, MEDICAID, SELFPAY | PROVIDERS: PCP Nurse Practitioner Family; Visit Provider Nurse Practitioner Family | DX: N39.0 Urinary tract infection, site not specified (principal); A49.9 Bacterial infection, unspecified | CPT/HCPCS: 81003 ==

== ENCOUNTER → 2020-08-02 10:26 | Outpatient (BNVA) | payer MEDICARE, MEDICAID, SELFPAY | PROVIDERS: PCP Nurse Practitioner Family; Visit Provider Anesthesiology | DX: G89.29 Other chronic pain (principal); M48.062 Spinal stenosis, lumbar region with neurogenic claudication; M51.17 Intervertebral disc disorders with radiculopathy, lumbosacral region; M25.561 Pain in right knee; M96.1 Postlaminectomy syndrome, not elsewhere classified; Z98.890 Other specified postprocedural states; Z79.891 Long term (current) use of opiate analgesic; F17.210 Nicotine dependence, cigarettes, uncomplicated | CPT/HCPCS: 99214 ==

== ENCOUNTER 2020-08-19 18:27 | Observation (INO) | payer MEDICARE, MEDICAID, SELFPAY ==
[2020-08-19 18:30] VITALS: BP 155/87; PULSE 95; RESP 18; TEMP 35.8; O2SAT 97; BMI 41.5
--- NOTE | 2020-08-19 21:35 | W.ED.PSYCH ---
HPI - Psych General: Chief Complaint: Psychiatric Symptoms Stated Complaint: HALLUCINATING/2 DAYS Time Seen by Provider: 08/19/20 21:18 Source: patient and family Mode of arrival: wheelchair Limitations: no limitations History of Present Illness: HPI Narrative: Barb is a 60-year-old female brought in by her daughter with a week's history of hallucinations. Patient is seeing bugs on the floor, people that are not not there and people who have . Patient seems to seeing these things and believe them. Family states that the patient is never done this before. Patient denies any ill type symptoms. This patient specifically denies any headache, chest pain, shortness of breath, abdominal pain, urinary tract infection type symptoms or otherwise. The patient's daughter states that she is not been eating or drinking well and she does fear some dehydration. Patient normally gets around her home with a walker but at this time is having a hard time even transitioning from chair to a different seat. Patient states her legs feel weak. She is not complain of any back pain or leg pain. Review of Systems Const: Denies: fever(s), chills, body aches, fatigue, malaise or diaphoresis Eyes: Denies: change in vision, blurry vision, photophobia, eye discomfort, eye discharge, eye redness or yellow eyes ENMT: Denies: throat pain, odynophagia, hoarseness, swelling of lips/tongue, ear or mastoid pain, ear discharge, change in hearing or nasal discharge Card: Denies: chest pain, palpitations, irregular heart rhythm, edema, lightheadedness, syncope, pre-syncope, dyspnea on exertion or orthopnea Resp: Denies: dyspnea, productive cough, non-productive cough, wheezing, hemoptysis or chest congestion GI: Denies: abdominal pain, nausea, vomiting, hematemesis, coffee ground emesis, heartburn, diarrhea, constipation, GI cramping, hematochezia or melena : Denies: flank pain, dysuria, urinary frequency, urinary urgency or hematuria Musc: Denies: neck pain, back pain, extremity pain, extremity swelling, joint pain, joint swelling, joint redness, joint warmth or joint stiffness Skin/Breast: Denies: rash, pruritus, erythema, skin pain or skin tenderness Neuro: Denies: headache(s), numbness in extremities, weakness in extremities, sensory changes, lack of coordination, difficulty walking, dizziness, vertigo, confusion, Slurred speech present or seizure-like activity Alfred/Lymph: Denies: easy bruising, easy bleeding, petechiae, purpura or enlarged lymph nodes All/Imm: Denies: urticaria, throat swelling, tongue swelling, facial swelling or acute wheezing PFSH ED PFSH: Medical History Chronic pain of both knees Patient has fair control of pain with current treatment through pain management. Patient is taking [place] and Ultram Depression Patient is well controlled with Cymbalta 80mg. Encounter for long-term use of opiate analgesic GERD (gastroesophageal reflux disease) Patient is well controlled with Prilosec 40mg daily Hypertension Patient is well controlled with Lisinopril 20mg Intervertebral disc disorder with radiculopathy of lumbosacral region Lumbar post-laminectomy syndrome 01/13/2016 bilateral L4-L5 hemilaminotomy/discectomy/foraminotomy Lumbar stenosis with neurogenic claudication Morbid obesity with BMI of 40.0-44.9, adult Opioid contract exists UTI (urinary tract infection), bacterial Surgical History History of cervical spinal surgery 08/04/2010 Dr. Aleksander Juarez. C5-C6, C6-C7 ACDFF, C6 corpectomy. History of lumbar surgery 01/13/2016 Dr. Aleksander Juarez. Bilateral L4-L5 hemilaminotomy/discectomy/ foraminotomy History of shoulder surgery Family History Other Family history non-contributory Social History Smoking and tobacco status: current some day smoker Alcohol intake: never Household members: spouse Marital status: Current occupational status: disabled History of recent travel: No Physical Exam Const: COMMON NORMALS: no acute distress, patient oriented x3, no limitations and alert GENERAL APPEARANCE: cooperative HENMT: COMMON NORMALS: normocephalic, atraumatic, external ears normal, EAC's normal and Normal external nose present HEAD & SCALP: normal to inspection, normocephalic and atraumatic FACE & SINUS: normal facial exam and face symmetric NOSE: Normal external nose present and Normal nares present EXTERNAL EAR: Yes external ears normal EXTERNAL AUDITORY CANAL: EAC's normal MOUTH: Normal oral and palatal mucosa present, lip normal and tongue normal Eye: COMMON NORMALS: Equal, round and reactive pupils present and conjunctivae normal GENERAL EYE: appearance normal, both eyes and all related structures ALIGNMENT: Yes alignment normal PERIORBITAL: periorbital findings normal EYELID: eyelids normal CONJUNCTIVA: Yes conjunctivae normal SCLERA: sclerae normal PUPIL: Yes Equal, round and reactive pupils present Neck/C-Spine: COMMON NORMALS: full ROM, no lymphadenopathy, supple, no meningeal signs and no JVD GENERAL: Yes normal visual inspection and Yes trachea midline Chest: COMMONS NORMALS: normal inspection of the chest and normal palpation of entire chest wall Resp: COMMON NORMALS: normal respiratory effort, No retractions, No use of accessory muscles and clear to auscultation bilaterally EFFORT & INSPECTION: Yes able to speak in complete sentences and Yes symmetric chest movement AUSCULTATION: clear to auscultation bilaterally, no crackles, no rales, no rhonchi and no wheezes Cardio: COMMON NORMALS: no JVD, regular rate, regular rhythm, S1 normal heart sound present and S2 normal heart sound present RATE: regular rate RHYTHM: regular rhythm HEART SOUNDS: S1 normal heart sound present, S2 normal heart sound present, no click, no gallops, no murmurs and no rubs GI: COMMON NORMALS: Soft to palpation and No hepatosplenomegaly present PALPATION: Yes Soft to palpation, No Tenderness to palpation present (GI), No Guarding due to palpation present (GI), No Rigid due to palpation, Yes No hepatosplenomegaly present, No Hernia present, No Palpable mass present and No Pulsatile mass present : COMMON NORMALS: Yes no CVA tenderness BLADDER/KIDNEY EXAM: Yes no CVA tenderness EXTERNAL FEMALE EXAM: No Hernia present Back/Pelvis: COMMON NORMALS: no CVA tenderness, thoracic and lumbar spine normal to inspection, no thoracic nor lumbar tenderness and thoraco-lumbar ROM normal Extremity: COMMON NORMALS: normal to inspection, full ROM, capillary refill normal, no joint enlargement, no clubbing, cyanosis or edema and no calf tenderness Neuro: COMMON NORMALS: patient oriented x3, CN's II-XII intact bilaterally, moves all extremities, no focal motor deficits and no sensory deficits noted SENSORIUM/ORIENTATION: Yes alert MENINGEAL SIGNS: Yes no meningeal signs SPEECH: speech normal Psych: COMMON NORMALS: mental status grossly normal, Normal thought process present, cooperative, normal affect, speech normal and activity/motor behavior normal SPEECH: Yes normal speech THOUGHT PROCESS: Normal thought process present THOUGHT CONTENT: Yes Hallucination(s) present Skin: COMMON NORMALS: no rashes or lesions noted, turgor normal, no jaundice, no petechiae and no mottling GENERAL SKIN EXAM: no rashes or lesions noted and turgor normal MDM - Psych MDM Narrative: Medical decision making narrative: 351 -the case was reviewed with Dr. Givens, he would like the patient to be admitted to the hospital under the hospitalist service for further IV fluids. Currently the patient is alert and oriented x3 without any complaint. She is still intermittently having these hallucinations. I see no sign of meningitis or encephalitis as the patient has no headache and is still alert. This is not out of the realm of possibilities though and I have discussed this with Dr. Baptiste. He agrees admit the patient with a consult to Dr. Givens. Further care will be dictated by him. Lab Data: Attestation: I reviewed the patient's lab results. Labs: Lab Results 08/19/20 08/19/20 08/19/20 Range/Units 21:25 21:25 21:49 WBC 12.6 H (4.0-10.0) 10^3/ uL RBC 5.01 (4.1-5.3) 10^6/u L Hgb 12.5 (11.5-15.3) g/dL Hct 39.7 (37.0-47.0) % MCV 79.2 L (81-99) fL MCH 25.0 L (28.0-34.0) pg MCHC 31.5 (30.0-36.0) g/dL RDW 17.8 H (12.1-15.1) % Plt Count 247 (130-400) 10^3/c mm MPV 11.7 H (7.4-10.4) fL Neut % (Auto) 77.8 % Lymph % (Auto) 14.0 % [place] % (Auto) 7.6 % Eos % (Auto) 0.1 % Baso % (Auto) 0.2 % Neut # (Auto) 9.81 H (1.8-7.7) 10^3/u L Lymph # (Auto) 1.8 (0.8-4.8) 10^3/u L [place] # (Auto) 1.0 H (0.2-0.9) 10^3/u L Eos # (Auto) 0.0 (0.0-0.8) 10^3/u L Baso # (Auto) 0.0 (0.0-0.1) 10^3/u L Nucleated RBC % (a uto) 0 % Nucleated RBCs # 0.0 /100WBC PT (12.1-14.9) SECO NDS INR (0.8-1.2) Sodium 133 L (136-145) mmol/L Potassium 3.8 (3.5-5.1) mmol/L Chloride 96 L (98-107) mmol/L Carbon Dioxide 26 (22-29) mmol/L Anion Gap 14.8 (5-19) BUN 11 (6-20) mg/dL Creatinine 0.6 (0.5-0.9) mg/dL GFR Calculation 102.3 (90-130) mL/min Glucose 113 (65-115) mg/dL Calculated Osmolal ity 276 L (285-295) mOsm/k g Calcium 9.3 (8.5-10.5) mg/dL Total Bilirubin 0.6 (0.15-1.2) mg/dL AST 90 H (0-32) U/L ALT 53 H (0-33) U/L Alkaline Phosphata se 77 (35-105) IU/L Troponin T Baselin e 17 H (0-10) ng/L Troponin T 120 Min [place] (0-10) ng/L Delta Troponin T (0-10) ABS# Total Protein 7.2 (6.6-8.7) g/dL Albumin 3.7 (3.5-5.2) g/dL Globulin 3.5 (1.3-4.6) g/dL TSH 0.30 (0.27-4.20) uIU/ mL Urine Color (Yellow) Urine Appearance (CLEAR) Urine pH (5-7) Ur Specific Gravit y (1.005-1.030) Urine Protein (Negative) Urine Glucose (UA) (Normal) Urine Ketones (Negative) Urine Blood (Negative) Urine Nitrate (Negative) Urine Bilirubin (Negative) Urine Urobilinogen (Negative) mg/dL Ur Leukocyte Ilda ase (Negative) Salicylates < 0.3 L (3-10) mg/dL Urine Opiates Scre en (Negative) ng/mL Acetaminophen < 5.0 L (10-30) ug/mL Ur Barbiturates Sc reen (Negative) ng/mL Ur Phencyclidine S crn (Negative) ng/mL Ur Amphetamines Sc reen (Negative) ng/mL U Benzodiazepines Scrn (Negative) ng/mL Urine Cocaine Scre en (Negative) ng/mL U Marijuana (THC) Screen (Negative) ng/mL Ethyl Alcohol < 10 (0-10) mg/dL 08/19/20 08/20/20 08/20/20 Range/Units 21:53 01:46 02:27 WBC (4.0-10.0) 10^3/ uL RBC (4.1-5.3) 10^6/u L Hgb (11.5-15.3) g/dL Hct (37.0-47.0) % MCV (81-99) fL MCH (28.0-34.0) pg MCHC (30.0-36.0) g/dL RDW (12.1-15.1) % Plt Count (130-400) 10^3/c mm MPV (7.4-10.4) fL Neut % (Auto) % Lymph % (Auto) % [place] % (Auto) % Eos % (Auto) % Baso % (Auto) % Neut # (Auto) (1.8-7.7) 10^3/u L Lymph # (Auto) (0.8-4.8) 10^3/u L [place] # (Auto) (0.2-0.9) 10^3/u L Eos # (Auto) (0.0-0.8) 10^3/u L Baso # (Auto) (0.0-0.1) 10^3/u L Nucleated RBC % (a uto) % Nucleated RBCs # /100WBC PT 13.10 (12.1-14.9) SECO NDS INR 0.96 (0.8-1.2) Sodium (136-145) mmol/L Potassium (3.5-5.1) mmol/L Chloride (98-107) mmol/L Carbon Dioxide (22-29) mmol/L Anion Gap (5-19) BUN (6-20) mg/dL Creatinine (0.5-0.9) mg/dL GFR Calculation (90-130) mL/min Glucose (65-115) mg/dL Calculated Osmolal ity (285-295) mOsm/k g Calcium (8.5-10.5) mg/dL Total Bilirubin (0.15-1.2) mg/dL AST (0-32) U/L ALT (0-33) U/L Alkaline Phosphata se (35-105) IU/L Troponin T Baselin e (0-10) ng/L Troponin T 120 Min [place] 18.46 H (0-10) ng/L Delta Troponin T 1.46 (0-10) ABS# Total Protein (6.6-8.7) g/dL Albumin (3.5-5.2) g/dL Globulin (1.3-4.6) g/dL TSH (0.27-4.20) uIU/ mL Urine Color Yellow (Yellow) Urine Appearance Clear (CLEAR) Urine pH 5.0 (5-7) Ur Specific Gravit y 1.020 (1.005-1.030) Urine Protein Neg (Negative) Urine Glucose (UA) Norm (Normal) Urine Ketones 2+ H (Negative) Urine Blood Neg (Negative) Urine Nitrate Negative (Negative) Urine Bilirubin Neg (Negative) Urine Urobilinogen Norm (Negative) mg/dL Ur Leukocyte Ilda ase Negative (Negative) Salicylates (3-10) mg/dL Urine Opiates Scre en (Negative) ng/mL Acetaminophen (10-30) ug/mL Ur Barbiturates Sc reen (Negative) ng/mL Ur Phencyclidine S crn (Negative) ng/mL Ur Amphetamines Sc reen (Negative) ng/mL U Benzodiazepines Scrn (Negative) ng/mL Urine Cocaine Scre en (Negative) ng/mL U Marijuana (THC) Screen (Negative) ng/mL Ethyl Alcohol (0-10) mg/dL 08/20/20 Range/Units 02:27 WBC (4.0-10.0) 10^3/ uL RBC (4.1-5.3) 10^6/u L Hgb (11.5-15.3) g/dL Hct (37.0-47.0) % MCV (81-99) fL MCH (28.0-34.0) pg MCHC (30.0-36.0) g/dL RDW (12.1-15.1) % Plt Count (130-400) 10^3/c mm MPV (7.4-10.4) fL Neut % (Auto) % Lymph % (Auto) % [place] % (Auto) % Eos % (Auto) % Baso % (Auto) % Neut # (Auto) (1.8-7.7) 10^3/u L Lymph # (Auto) (0.8-4.8) 10^3/u L [place] # (Auto) (0.2-0.9) 10^3/u L Eos # (Auto) (0.0-0.8) 10^3/u L Baso # (Auto) (0.0-0.1) 10^3/u L Nucleated RBC % (a uto) % Nucleated RBCs # /100WBC PT (12.1-14.9) SECO NDS INR (0.8-1.2) Sodium (136-145) mmol/L Potassium (3.5-5.1) mmol/L Chloride (98-107) mmol/L Carbon Dioxide (22-29) mmol/L Anion Gap (5-19) BUN (6-20) mg/dL Creatinine (0.5-0.9) mg/dL GFR Calculation (90-130) mL/min Glucose (65-115) mg/dL Calculated Osmolal ity (285-295) mOsm/k g Calcium (8.5-10.5) mg/dL Total Bilirubin (0.15-1.2) mg/dL AST (0-32) U/L ALT (0-33) U/L Alkaline Phosphata se (35-105) IU/L Troponin T Baselin e (0-10) ng/L Troponin T 120 Min [place] (0-10) ng/L Delta Troponin T (0-10) ABS# Total Protein (6.6-8.7) g/dL Albumin (3.5-5.2) g/dL Globulin (1.3-4.6) g/dL TSH (0.27-4.20) uIU/ mL Urine Color (Yellow) Urine Appearance (CLEAR) Urine pH (5-7) Ur Specific Gravit y (1.005-1.030) Urine Protein (Negative) Urine Glucose (UA) (Normal) Urine Ketones (Negative) Urine Blood (Negative) Urine Nitrate (Negative) Urine Bilirubin (Negative) Urine Urobilinogen (Negative) mg/dL Ur Leukocyte Ilda ase (Negative) Salicylates (3-10) mg/dL Urine Opiates Scre en Positive H (Negative) ng/mL Acetaminophen (10-30) ug/mL Ur Barbiturates Sc reen Negative (Negative) ng/mL Ur Phencyclidine S crn Negative (Negative) ng/mL Ur Amphetamines Sc reen Negative (Negative) ng/mL U Benzodiazepines Scrn Negative (Negative) ng/mL Urine Cocaine Scre en Negative (Negative) ng/mL U Marijuana (THC) Screen Negative (Negative) ng/mL Ethyl Alcohol (0-10) mg/dL Imaging Data^: CT Head: Radiologist's impression: [employer] [address] [address] Scan Report Signed Patient: Marielos Parmar #: [id number] : 1960cc#:[id number] Age/Sex: 60 / FADM Date: 08/19/20 Loc: [facility]/Bed: Attending Dr: Ordering Provider/Ordering MD: Jennifer Gale DO Date of Service: 08/19/20 Procedure(s): CT head wo con* [id number] Accession Number(s): [id number] Report Number: [id number] PROCEDURE INFORMATION: Exam: CT Head Without Contrast Exam date and time: 08/19/2020 10:38 PM Age: 60 years old Clinical indication: Injury or trauma; Fall; Blunt trauma (contusions or hematomas); Altered mental status/memory loss TECHNIQUE: Imaging protocol: Computed tomography of the head without contrast. Radiation optimization: All CT scans at this facility use at least one of these dose optimization techniques: automated exposure control; mA and/or kV adjustment per patient size (includes targeted exams where dose is matched to clinical indication); or iterative reconstruction. COMPARISON: CT head wo con* [id number] 06/22/2015 1:05 PM RADIATION DOSE METRICS: Total DLP (mGy-cm): 893.51 FINDINGS: Brain: No acute intracranial hemorrhage or mass effect. No definite acute infarct by CT. MRI could be more sensitive/specific for detection, as clinically directed. Cerebral ventricles: Ventricle size is normal for age. Bones/joints: No definite acute skull fracture. Paranasal sinuses: Included paranasal sinuses are essentially clear. Mastoid air cells: No significant acute finding. CT/CT head wo con* [id number] IMPRESSION: 1. No acute intracranial hemorrhage or mass effect. 2. No definite acute infarct by CT, see above. 3. Other findings discussed above. Radiation Dose CTDIVOL = (mGy): DLP = 893.51 (mGy-cm) Dictated By:Jesse Santos MD Signed By:Jesse Santosigned Date/Time:08/19/202310 DD/ 09 Discharge Plan Discharge Patient Disposition: Admitted As Inpatient Clinical Impression: Hallucinations, Acute dehydration, Frequent falls Condition: Stable Prescriptions: No Action Complete Multivitamin Tablet 1 tab PO QAM@0500 RF: 0 calcium carbonate [Calcium 500] 500 mg calcium (1,250 mg) tablet,chewable 500 mg PO DAILY@0500 RF: 0 tramadol 50 mg tablet 100 mg PO TID PRN (Reason: pain) 30 Days Qty: 180 RF: 1 cyclobenzaprine 10 mg tablet 10 mg PO TID PRN (Reason: muscle spasm) 30 Days Qty: 90 RF: 1 diclofenac sodium 1 % gel 2 gm TOPICAL BID PRN (Reason: joint pain) Qty: 100 RF: 5 hydrocodone-acetaminophen 10-325 mg tablet 1 tab PO TID PRN (Reason: pain) 30 Days Qty: 90 RF: 0 Hair,Skin and Nails Tablet 1 tab PO DAILY@0500 RF: 0 Vitamin B-12 1 tab PO DAILY@0500 RF: 0 lisinopril 20 mg tablet 20 mg PO DAILY@0500 RF: 0 omeprazole 40 mg capsule,delayed release(DR/EC) 40 mg PO .Q24@0500 RF: 0 duloxetine 20 mg capsule,delayed release(DR/EC) 20 mg PO DAILY@2200 RF: 0 duloxetine 60 mg capsule, delayed rel sprinkle 60 mg PO DAILY@0500 RF: 0 Referrals: VIPIN Deleon, PLANING MACHINE OPERATOR [Primary Care Provider] - Coding Level of Care Code ED Sas Statistical Programmer for Chg Fwd Exam Comprehensive
[2020-08-19 21:47] LABS: Basophils % 0.2 %; Eosinophils % 0.1 %; Hematocrit 39.7 % (37.0-47.0); Hemoglobin 12.5 g/dL (11.5-15.3); Lymphocytes # 1.8 10^3/uL (0.8-4.8); Mean Corpuscular HGB Conc 31.5 g/dL (30.0-36.0); Mean Corpuscular Volume 79.2 fL (81-99); Mean Platelet Volume 11.7 fL (7.4-10.4); Monocytes % 7.6 %; Neutrophils # 9.81 10^3/uL (1.8-7.7); Neutrophils % 77.8 %; Nucleated Red Blood Cells % 0 %; Platelet Count 247 10^3/cmm (130-400); Red Blood Count 5.01 10^6/uL (4.1-5.3); Red Cell Distribution Width 17.8 % (12.1-15.1); White Blood Count 12.6 10^3/uL (4.0-10.0)
[2020-08-19 22:15] LABS: Albumin Level 3.7 g/dL (3.5-5.2); Blood Urea Nitrogen 11 mg/dL (6-20); Calcium 9.3 mg/dL (8.5-10.5); Carbon Dioxide 26 mmol/L (22-29); Chloride 96 mmol/L (98-107); Globulin 3.5 g/dL (1.3-4.6); Glomerular Filtration Rate 102.3 mL/min (90-130); Glucose 113 mg/dL (65-115); Osmolality Calculated 276 mOsm/kg (285-295); Sodium 133 mmol/L (136-145); Total Bilirubin 0.6 mg/dL (0.15-1.2); Total Protein 7.2 g/dL (6.6-8.7)
[2020-08-19 22:18] LABS: INR 0.96 (0.8-1.2)
[2020-08-19 22:28] VITALS: BP 133/93; PULSE 99; O2SAT 96
--- NOTE | 2020-08-19 22:35 | CTR_ITS ---
PROCEDURE INFORMATION: Exam: CT Head Without Contrast Exam date and time: 08/19/2020 10:38 PM Age: 60 years old Clinical indication: Injury or trauma; Fall; Blunt trauma (contusions or hematomas); Altered mental status/memory loss TECHNIQUE: Imaging protocol: Computed tomography of the head without contrast. Radiation optimization: All CT scans at this facility use at least one of these dose optimization techniques: automated exposure control; mA and/or kV adjustment per patient size (includes targeted exams where dose is matched to clinical indication); or iterative reconstruction. COMPARISON: CT head wo con* [id number] 06/22/2015 1:05 PM RADIATION DOSE METRICS: Total DLP (mGy-cm): 893.51 FINDINGS: Brain: No acute intracranial hemorrhage or mass effect. No definite acute infarct by CT. MRI could be more sensitive/specific for detection, as clinically directed. Cerebral ventricles: Ventricle size is normal for age. Bones/joints: No definite acute skull fracture. Paranasal sinuses: Included paranasal sinuses are essentially clear. Mastoid air cells: No significant acute finding. CT/CT head wo con* [id number] IMPRESSION: 1. No acute intracranial hemorrhage or mass effect. 2. No definite acute infarct by CT, see above. 3. Other findings discussed above. Radiation Dose CTDIVOL = (mGy): DLP = 893.51 (mGy-cm)
[2020-08-19 22:48] LABS: Acetaminophen < 5.0 ug/mL (10-30); Alcohol Level < 10 mg/dL (0-10); Anion Gap 14.8 (5-19); Aspartate Amino Transferase 90 U/L (0-32); Potassium 3.8 mmol/L (3.5-5.1); Salicylate < 0.3 mg/dL (3-10)
[2020-08-19 22:49] LABS: Alanine Aminotransferase 53 U/L (0-33); Alkaline Phosphatase 77 IU/L (35-105)
[2020-08-19 23:03] LABS: Troponin(5th) Baseline 17 ng/L (0-10)
[2020-08-19] MEDS: sodium chloride 0.9% 1,000 ML 999 ML IV (23:07)
[2020-08-20] VITALS (16 sets, daily range): BP systolic 113–175; BP diastolic 61–90; PULSE 4–118; RESP 16–26; TEMP 36.6–37.3; O2SAT 80–99
--- NOTE | 2020-08-20 00:35 | ECG_ITS ---
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 Measurements Intervals [place] Rate: 102 P: 64 RI: 166 QRS: 5 QRSD: 83 T: 51 QT: 337 QTc: 440 Interpretive Statements SINUS TACHYCARDIA POSSIBLE LEFT ATRIAL ENLARGEMENT [-0.1mV P WAVE IN V1/V2] Compared to ECG 01/20/2019 13:10:02 Sinus bradycardia no longer present Electronically Signed On 08-20-2020 17:14:23 GRID MOLDER by Ayesha Romero M.D. [id number]
[2020-08-20 02:13] LABS: Troponin 5 2HR 18.46 ng/L (0-10); Troponin 5 2HR Delta 1.46 ABS# (0-10)
[2020-08-20] MEDS: morphine 4 mg/mL SDV 1 mL IVP (02:14)
[2020-08-20] MEDS: ondansetron 2 mg/ML SDV 2 mL 4 MG IVP (02:14)
[2020-08-20 02:35] LABS: Add Urine Microscopic? NO
[2020-08-20] MEDS: sodium chloride 0.9% 1,000 ML 100 ML IV (02:39)
[2020-08-20 02:43] LABS: Bilirubin Urine Neg (Negative); Blood Urine Neg (Negative); Glucose Urine UA Norm (Normal); Ketones Urine 2+ (Negative); Leukocyte Esterase Urine Negative (Negative); Nitrate Urine Negative (Negative); Protein Urine Neg (Negative); Urine Appearance Clear (CLEAR); Urine Color Yellow (Yellow); Urobilinogen Urine Norm (Negative)
[2020-08-20 02:56] LABS: Amphetamines Screen Urine Negative (Negative); Barbiturates Screen Urine Negative (Negative); Benzodiazepines Screen Urine Negative (Negative); Cocaine Screen Urine Negative (Negative); Opiate Screen Urine Positive (Negative); PCP Screen Urine Negative (Negative); THC Screen Urine Negative (Negative)
--- NOTE | 2020-08-20 03:19 | PC.NURSE ---
pt daughter reports pt has been experiencing visual hallucinations intermittently for approx a week. pt experiencing dizziness, more frequent falls, slurred speech, and sciatic pain to left leg.
--- NOTE | 2020-08-20 03:37 | PM.HP ---
Providers/Chief Complaint Primary Care Provider: LEONORA Roberts Chief Complaint: HALLUCINATING/2 DAYS History of Present Illness Barb Parmar is a 60 year old female who has history of sciatica, lumbosacral radiculopathy, lumbar postlaminectomy syndrome, neurogenic claudication, presented today with chief complaint of hallucination. Daughter brought her to the hospital for visual hallucination (seeing relatives and [place] creatures). Of note, her Flexeril dose was recently increased because of worsening back pain, she is on Flexeril, muscle relaxers, tramadol, opioids, cyclobenzaprine. She is dependent on walker for ambulation. Patient is stating that it makes her very irritable and anxious when the person that she is seeing does not talking back to her. She is attributing her fall to her balance and leg pain. Her sciatica is getting worse, she has not noticed any urinary/rectal incontinence, she is denying fever, headache, blurry vision, chest pain shortness of breath diarrhea dysuria. Diagnosis in the ER revealed mild leukocytosis, she does not meet sepsis criteria, her UA is normal, imaging work-up is unremarkable CT head unremarkable, sodium 133, mild abnormal transaminases normal bilirubin and alk phos level At the time my evaluation she was awake alert oriented x3, noticed muscle twitching myoclonic jerks otherwise no other neurological deficits, excruciating pain on ambulation of lower extremities which she is attributing to her chronic lower back pain and sciatica Review of Systems Const: Reports: body aches, fatigue and malaise; Denies: fever(s) or chills Eyes: Denies: change in vision ENMT: Denies: throat pain Card: Denies: chest pain Resp: Denies: dyspnea GI: Denies: abdominal pain or diarrhea : Denies: flank pain Musc: Reports: back pain, extremity pain, extremity swelling and limited range of motion; Denies: neck pain Skin/Breast: Reports: lesions; Denies: rash Neuro: Reports: weakness in extremities and confusion; Denies: headache(s) Psych: Reports: anxiety Endo: Denies: polyuria Alfred/Lymph: Denies: easy bruising All/Imm: Denies: urticaria Medications/Allergies Home Medications Medication Instructions Recorded Confirmed Last Taken Type multivitamin,[id number]-ivee-gbrrwcwq 1 tab PO QAM@0500 09/18/19 08/19/20 08/19/20 History calcium carbonate 500 mg calcium 500 mg PO DAILY@0500 03/05/20 08/19/20 08/19/20 History (1,250 mg) chewable tablet diclofenac sodium 1 % topical gel 2 gm TOPICAL BID PRN #100 gm 07/16/20 08/19/20 08/19/20 Rx cyclobenzaprine 10 mg tablet 10 mg PO TID PRN 30 Days #90 tab 08/02/20 08/19/20 08/19/20 Rx tramadol 50 mg tablet 100 mg PO TID PRN 30 Days #180 tab 08/02/20 08/19/20 08/19/20 Rx hydrocodone 10 mg-acetaminophen 1 tab PO TID PRN 30 Days #90 tab 08/13/20 08/19/20 08/19/20 Rx 325 mg tablet Vitamin B-12 1 tab PO DAILY@0500 08/19/20 08/19/20 08/19/20 History duloxetine 20 mg PO DAILY@2200 08/19/20 08/19/20 08/18/20 History duloxetine 60 mg PO DAILY@0500 08/19/20 08/19/20 08/19/20 History lisinopril 20 mg PO DAILY@0500 08/19/20 08/19/20 08/19/20 History multivitamin with minerals 1 tab PO DAILY@0500 08/19/20 08/19/20 08/19/20 History [Hair,Skin and Nails] omeprazole 40 mg PO .Q24@0500 08/19/20 08/19/20 08/19/20 History Allergies Allergy/AdvReac Type Severity Reaction Status Date / Time butorphanol [From Stadol] Allergy Severe mental Verified 08/19/20 18:32 status change Penicillins Allergy Intermediate hives Verified 08/19/20 18:32 cefaclor [From Ceclor] Allergy Mild hives Verified 08/19/20 18:32 gabapentin Allergy Mild hives Verified 08/19/20 18:32 PFSH Acute PFSH: Medical History Chronic pain of both knees Patient has fair control of pain with current treatment through pain management. Patient is taking [place] and Ultram Depression Patient is well controlled with Cymbalta 80mg. Encounter for long-term use of opiate analgesic GERD (gastroesophageal reflux disease) Patient is well controlled with Prilosec 40mg daily Hypertension Patient is well controlled with Lisinopril 20mg Intervertebral disc disorder with radiculopathy of lumbosacral region Lumbar post-laminectomy syndrome 01/13/2016 bilateral L4-L5 hemilaminotomy/discectomy/foraminotomy Lumbar stenosis with neurogenic claudication Morbid obesity with BMI of 40.0-44.9, adult Opioid contract exists UTI (urinary tract infection), bacterial Surgical History History of cervical spinal surgery 08/04/2010 Dr. Aleksander Juarez. C5-C6, C6-C7 ACDFF, C6 corpectomy. History of lumbar surgery 01/13/2016 Dr. Aleksander Juarez. Bilateral L4-L5 hemilaminotomy/discectomy/ foraminotomy History of shoulder surgery Family History Other Family history non-contributory Social History Smoking and tobacco status: current some day smoker Alcohol intake: never Household members: spouse Marital status: Current occupational status: disabled History of recent travel: No Vitals/I&O/Wt Last Vital Signs Temp 96.4 F L 08/19/20 18:30 Pulse 105 H 08/20/20 03:06 Resp 19 H 08/20/20 03:06 BP 130/90 08/20/20 03:06 Pulse Ox 93 08/20/20 03:06 Weight last 48 hrs Weight 109.769 kg Physical Exam Narrative: EXAM NARRATIVE: Middle-age female who looks more than stated age Morbidly obese Patient has myoclonic twitching of upper extremities She has been afebrile, no typical features of serotonin syndrome No neurological deficit she is awake alert oriented x3 GCS 15 Lower extremities limited movement because of sciatica and back pain No signs of meningitis EOMI, PERRLA S1, S2 sinus tachycardia Abdomen soft distended nontender abdomen Lower extremity edema with venous stasis dermatitis multiple abrasion and lacerations noted of lower extremities Sensations intact of lower extremities No sensory loss around medial side of her thighs, patient denying rectal/bowel incontinence No acute respiratory distress Her mood seems to be anxious Urinary Catheter Management^: Coude: Cath Placed During This Visit: yes Reason for Continuing Indwelling Catheter: Other Urinary Catheter Date of Insertion: 08/20/20 Data : 08/19/20 21:25 08/19/20 21:25 A&P Assessment and plan (1) Hallucinations: Status: Acute (2) Acute dehydration: Status: Acute (3) Frequent falls: Status: Acute Additional A&P Information Visual hallucinations CT scan not consistent with normal pressure hydrocephalus Does not depict signs of Parkinson's dementia No signs of meningitis or acute stroke I do believe polypharmacy, opioids muscle relaxants have a role to play, She does have clinical signs of dehydration I would start her on normal saline maintenance rate Avoid antibiotics For abnormal transaminases will obtain gallbladder ultrasound Acute dehydration: She has mild hyponatremia, urine ketones positive Holding SSRI, her extent of hyponatremia does not correlate with her symptoms Monitor sodium level on normal saline for now Frequent falls Does not depict signs of cauda equina syndrome No urinary/rectal incontinence, sensations intact of lower extremities Knee osteoarthritis, swollen legs and sciatica has a role to play in frequent falls with radiculopathy Obtain physical therapy evaluation Consider another MRI in the morning to rule out cord compression I would avoid adding Decadron because of her hallucinations which might get aggravated due to steroid use Full code Regular diet Lovenox DVT prophylax Attestations Medical Necessity Statement*: Anticipating discharge in less than 48 hours after fluid resuscitation, full visual hallucination will need psychiatry evaluation Time Spent in Patient Care: (>than 50% of time spent in counselling and/or direct pt care on unit). 45mins Coding Level of Care Code Acute [employer] for Mindy Salamanca Diagnoses Hallucinations R44.3 Acute dehydration E86.0 Frequent falls R29.6
--- NOTE | 2020-08-20 04:15 | PC.NURSE ---
santa ordered numerous attempts this nurse, ERIKA RN, BALJIT RN, AND LYNNE PRADO SUCCESSFULLY PLACED 14F COUDE CATH.
[2020-08-20 05:36] LABS: Troponin 5 6HR 19.71 ng/L (0-10); Troponin 5 6HR Delta 2.71 ng/L (0-12)
--- NOTE | 2020-08-20 07:47 | PC.NURSE ---
I started vitals on the patient. 02 level ws 65%. I reported to respitory and then to charge nurse. we were able to get her up to 96%. deep cough, raised head of the bed, and turned up the o2 for a few minutes.
[2020-08-20 08:31] LABS: Alanine Aminotransferase 44 U/L (0-33); Albumin Level 3.4 g/dL (3.5-5.2); Alkaline Phosphatase 72 IU/L (35-105); Anion Gap 17.5 (5-19); Aspartate Amino Transferase 54 U/L (0-32); Blood Urea Nitrogen 11 mg/dL (6-20); Calcium 8.8 mg/dL (8.5-10.5); Carbon Dioxide 23 mmol/L (22-29); Chloride 100 mmol/L (98-107); Globulin 2.6 g/dL (1.3-4.6); Glomerular Filtration Rate 85.6 mL/min (90-130); Glucose 97 mg/dL (65-115); Osmolality Calculated 283 mOsm/kg (285-295); Potassium 3.5 mmol/L (3.5-5.1); Sodium 137 mmol/L (136-145); Total Bilirubin 0.5 mg/dL (0.15-1.2)
[2020-08-20] MEDS: lisinopril 20 mg Tablet PO (09:11)
[2020-08-20] MEDS: enoxaparin 40 mg/0.4 mL Syringe SUBCUT (09:12)
[2020-08-20] MEDS: pantoprazole DR 40 mg Tablet PO (09:12)
[2020-08-20] MEDS: sodium chloride 0.9% 1,000 ML 75 ML IV ×2 (09:12→23:25)
--- NOTE | 2020-08-20 09:23 | PC.RESP ---
SMOKING CESSATION INFORMATION SENT TO PATIENT.
--- NOTE | 2020-08-20 11:10 | CT_ITS ---
WS: [id number] CT angio chest w abd pel w con REASON FOR EXAM: AMS, possible sepsis TECHNIQUE: Coronal and sagittal 2-D and MIP reformations. IV CONTRAST ADMINISTERED: 95 mL Omnipaque 300. TOTAL EXAM DLP: 2937.[address] scans at [facility] use at least one of these dose optimization techniques: automat ed exposure control; mA and/or kV adjustment per patient size (includes targeted exams where dose is matched to clinical indication); or iterative reconstruction. FINDINGS: CHEST: No pulmonary emboli. No significant abnormality of the thoracic aorta. No significant mediastinal or hilar adenopathy. Calcified granulomatous changes in the left hilar region. There is infiltrated lung along the posterior descending thoracic aorta and extends into the medial b vijay segment of the left lower lung. Medial basal segment of the left lung is consolidated and atelec tatic with some air bronchograms. This all appears inflammatory in nature. No significant amount of pleural fluid. Patient demonstrates significant decrease in bone density. There are no significant compression defor mities in the thoracic spine. There are mild changes of degenerative spondylosis. ABDOMEN: Previous gastric surgery. The liver, spleen, and pancreas are unremarkable. The adrenals and kidneys are within normal limits. No mass or adenopathy is identified. No focal fluid collection or free fluid is identified. No bowel abnormality is identified. The abdominal aorta and its major branches are within normal limits. Significant decrease in bony density. No focal bone lesion. Multilevel degenerative disc disease. No compression fracture or other focal bony abnormality. PELVIS: Christine catheter within the bladder. No mass, adenopathy, or fluid. No focal bone lesion. Mild to moderate degenerative changes in the hip joints. CT/CT angio chest w abd pel w con IMPRESSION: Presumed pneumonitis right lung with no pulmonary emboli or other significant c hest abnormality. No acute abnormality is seen in the abdomen or pelvis.
--- NOTE | 2020-08-20 11:11 | PM.PN ---
Subjective Subjective: Interval history: She is crying, states has been here for 2 days and has not been given any of her pain medications, although she did receive morphine overnight/early this morning. This morning also noted very lethargic and saturation down into 70% while sleeping. Discussed with her concerns regarding polypharmacy and risk of respiratory arrest as well as AMS as barriers to restarting her usual medications. She verbalized understanding and agreement to keep on the cautious side. Her pain is in her L lower back and radiating down the left leg. She describes it as sciatica. This is a chronic pain, but currently worse. She is not sure whether that is worse because she has not gotten any medications or for other reasons. She denies any headache. She has no dizziness. Denies any focal numbness or weakness. Denies any vision changes. No neck pain or stiffness. She has not had any fever, chills or muscle aches. She denies being diagnosed with sleep apnea formally, but says she snores. Never had a sleep study. Her has a CPAP machine which he uses. Vitals/I&O/Wt Last Vital Signs Temp 98.8 F 08/20/20 07:46 Pulse 109 H 08/20/20 07:46 Resp 18 08/20/20 07:46 BP 113/61 08/20/20 07:46 Pulse Ox 96 08/20/20 07:46 08/19/20 08/20/20 08/20/20 22:59 06:59 14:59 Intake Total 1000 / 1000 Balance 1000 / 1000 Weight last 48 hrs Weight 109.769 kg Physical Exam Const: COMMON NORMALS: no acute distress and patient oriented x3 NUTRITIONAL APPEARANCE: obese HENMT: COMMON NORMALS: oropharynx normal Neck/C-Spine: COMMON NORMALS: no meningeal signs and no JVD Resp: COMMON NORMALS: normal respiratory effort AUSCULTATION: wheezes (intermittent, L side) Cardio: COMMON NORMALS: no JVD, regular rhythm, S1 normal heart sound present, S2 normal heart sound present and No murmurs present (Cardio) RHYTHM: regular rhythm HEART SOUNDS: S1 normal heart sound present and S2 normal heart sound present GI: COMMON NORMALS: Normal to inspection, nondistended, normoactive bowel sounds present, Soft to palpation and non-tender PALPATION: Yes Soft to palpation Extremity: COMMON NORMALS: no joint enlargement and no pedal edema Neuro: COMMON NORMALS: patient oriented x3, moves all extremities and no sensory deficits noted SENSORIUM/ORIENTATION: Yes other (Visual domínguez full to confrontation) MENINGEAL SIGNS: Yes no meningeal signs COORDINATION/BALANCE: [id number] test normal SPEECH: speech normal, no expressive aphasia and no receptive aphasia GAIT: Yes Unable to assess gait SENSORY EXAM: Yes other; No sensory level loss detected MOTOR EXAM: Pronator motor function not present COORDINATION: [id number]-[id number] test normal Skin: COMMON NORMALS: no rashes or lesions noted GENERAL SKIN EXAM: no rashes or lesions noted Urinary Catheter Management^: Coude: Cath Placed During This Visit: yes Reason for Continuing Indwelling Catheter: Acute Urinary Retention or Obstruction Urinary Catheter Date of Insertion: 08/20/20 Data : 08/19/20 21:25 08/20/20 05:00 A&P Assessment and plan (1) Hallucinations: Does appear to currently be resolved. She is still not sure whether the people she was seeing are real or not. States they were not speaking to her. States also there work her grandchildren who are also not speaking to her. Acute encephalopathy with delirium suspected secondary to polypharmacy, however, additional work-up given some of her parameters may indicate sepsis, although the suspicion is less. She does have leukocytosis 12.6, sinus tachycardia 106. At this time no antibiotic. So far no suggestion of infection on, UA. She has no headache, no neck stiffness or meningeal signs. [employer] infection at this time is not suspected. She does have hardware in her spine. With back pain currently. Pending assessment with MRI. We will obtain blood cultures. CT of the head without acute findings. Will obtain CT chest abdomen pelvis as discussed with her. This morning found desaturating down into the 70s, lethargic. This may be secondary to polypharmacy, receiving morphine overnight, as well as undiagnosed sleep apnea. Discussed with her after discharge may benefit from sleep study. Does have intermittent wheeze in her chest. With sinus tachycardia will assess with CT. For chest portion requested to perform with PE protocol. Monitor for changes in vitals, monitor with continuous pulse ox. CPAP with sleep discussed with RT. Low threshold for initiation of antibiotics although for now held off as symptoms are less likely due to sepsis. Discussed with her. She is agreeable with assessment and plan. Her mental status appears much better. She has insight into her medical problems, although with regards to hallucinations she was having yesterday, appears to still not be sure whether those were real people. Follow-up CMP with additional assessment for acute liver failure depending on results, mental status. Appears to have some hepatocellular injury. So far no sign of cholestasis. Continue supportive care. With regards to treatment of pain we will start with lidocaine patch with which she is agreeable. She understands that given both encephalopathy and liver injury we have to be very cautious with resuming her medications. Status: Acute (2) Acute dehydration: Gentle IV hydration. Status: Acute (3) Frequent falls: MRI L-spine. PT assessment. Once mental status is stable, and we are able to resume some of her medications, may need to consider reducing dosing on some of them to prevent recurrence. Status: Acute Additional A&P Information Full code Regular diet Lovenox DVT prophylax Attestations Medical Necessity Statement*: Continue hospitalization for assessment management of acute encephalopathy, possible left less likely sepsis, dehydration, frequent falls recently, severe back pain with prior surgery and hardware. Coding Level of Care Code Acute [facility] for Mindy Salamanca Diagnoses Hallucinations R44.3 Acute dehydration E86.0 Frequent falls R29.6
[2020-08-20 13:09] LABS: Sodium 137 mmol/L (136-145)
[2020-08-20] MEDS: iohexol 350 mg/mL 100 mL Btl IV (16:09)
[2020-08-20] MEDS: iohexol 300 mg/mL 100 mL Btl IV (16:13)
[2020-08-20 18:25] LABS: Lactate (Lactic Acid level) 0.8 mmol/L (0.5-2.2)
[2020-08-20] MEDS: metroNIDAZOLE IV 500 MG/100 ML PREMIX 100 MG IV (18:45)
[2020-08-20] MEDS: levofloxacin-dextrose 5 % 750 MG/150 ML PREMIX 100 MG IV (18:54)
[2020-08-20] MEDS: lidocaine 5% Patch 1 PATCH TOPICAL (19:57)
[2020-08-20] MEDS: diphenhydrAMINE 25 mg Capsule PO (19:58)
[2020-08-20 20:38] LABS: Glucose Point of Care 122 mg/dL (70-110)
[2020-08-20] MEDS: nicotine 2 mg Gum BUCCAL (22:16)
[2020-08-21] VITALS (9 sets, daily range): BP systolic 138–171; BP diastolic 78–95; PULSE 83–93; RESP 18–21; TEMP 36.6–37.2; O2SAT 95–98
[2020-08-21] MEDS: metroNIDAZOLE IV 500 MG/100 ML PREMIX 100 MG IV ×2 (02:05→10:58)
[2020-08-21] MEDS: nicotine 2 mg Gum BUCCAL ×3 (03:30→11:47)
[2020-08-21] MEDS: lisinopril 20 mg Tablet PO (04:51)
[2020-08-21 05:17] LABS: Basophils # 0.1 10^3/uL (0.0-0.1); Basophils % 0.5 %; Eosinophils # 0.1 10^3/uL (0.0-0.8); Eosinophils % 0.6 %; Hematocrit 36.4 % (37.0-47.0); Hemoglobin 11.3 g/dL (11.5-15.3); Lymphocytes # 1.3 10^3/uL (0.8-4.8); Lymphocytes % 12.9 %; Mean Corpuscular Hemoglobin 24.8 pg (28.0-34.0); Mean Corpuscular Volume 79.8 fL (81-99); Mean Platelet Volume 11.4 fL (7.4-10.4); Monocytes % 9.6 %; Neutrophils % 75.8 %; Nucleated Red Blood Cells % 0 %; Platelet Count 212 10^3/cmm (130-400); Red Blood Count 4.56 10^6/uL (4.1-5.3); Red Cell Distribution Width 17.9 % (12.1-15.1); White Blood Count 10.2 10^3/uL (4.0-10.0)
[2020-08-21 05:36] LABS: Alanine Aminotransferase 40 U/L (0-33); Albumin Level 3.4 g/dL (3.5-5.2); Alkaline Phosphatase 71 IU/L (35-105); Anion Gap 13.3 (5-19); Aspartate Amino Transferase 35 U/L (0-32); Blood Urea Nitrogen 7 mg/dL (6-20); Calcium 8.6 mg/dL (8.5-10.5); Carbon Dioxide 27 mmol/L (22-29); Chloride 98 mmol/L (98-107); Globulin 2.7 g/dL (1.3-4.6); Glomerular Filtration Rate 102.3 mL/min (90-130); Glucose 111 mg/dL (65-115); Osmolality Calculated 279 mOsm/kg (285-295); Potassium 3.3 mmol/L (3.5-5.1); Sodium 135 mmol/L (136-145); Total Bilirubin 0.4 mg/dL (0.15-1.2); Total Protein 6.1 g/dL (6.6-8.7)
--- NOTE | 2020-08-21 05:54 | PM.PSYCN ---
Providers/Reason for Consult Consulting Physican/Specialty*: Nuno Givens MD. Psychiatry. Reason for Consult*: Altered mental status. Attending Physician: Ariel Cole Primary Care Provider: LEONORA Roberts Psych Consult HPI History of Present Illness Barb Parmar is a 60 year old female who presented to the emergency department with the following report: Chief Complaint: Psychiatric Symptoms Stated Complaint: HALLUCINATING/2 DAYS Time Seen by Provider: 08/19/20 21:18 Source: patient and family Mode of arrival: wheelchair Limitations: no limitations History of Present Illness: HPI Narrative: Barb is a 60-year-old female brought in by her daughter with a week's history of hallucinations. Patient is seeing bugs on the floor, people that are not not there and people who have . Patient seems to seeing these things and believe them. Family states that the patient is never done this before. Patient denies any ill type symptoms. This patient specifically denies any headache, chest pain, shortness of breath, abdominal pain, urinary tract infection type symptoms or otherwise. The patient's daughter states that she is not been eating or drinking well and she does fear some dehydration. Patient normally gets around her home with a walker but at this time is having a hard time even transitioning from chair to a different seat. Patient states her legs feel weak. She is not complain of any back pain or leg pain. She is admitted to the Medr unit for definitive treatment of those issues. Once she was on the unit concerns were raised about her altered mental status and whether there was a psychiatric component to her presentation. So a psychiatric consult was requested. In the interim it was noted that she had some possible overuse of opiates as well as a pneumonia/pneumonitis which antibiotics were started for. This morning patient presents absent any signs or symptoms of altered mental status. She answered all questions appropriately and without issue or concern. There was no confusion with questions no memory lapses and no report of depression or challenges. Patient does report a history of struggling with depression but that that has been managed with Cymbalta which was increased recently to 80 mg and she denies having significant issues since then. She endorses a plan to go to a pain clinic to make sure that her medications, specifically narcotics are managed better and that she is not creating any challenges or future delirium. She is aware of the patient medical concerns that were identified leading to the antibiotics and the need for her to take her medication as prescribed. Psychiatric history: As above. Substance use history: The issues of substances as noted above as well as cigarette smoking. Family history: She denies any true history. Developmental history: She denies any developmental delays or concerns. Psychosocial history: She denies any contributory history. Meds Current Medications: Current Medications Generic Name Dose Route Start Last Admin Trade Name Freq PRN Reason Stop Dose Admin Enoxaparin Sodium 40 mg 08/20/20 08:30 08/20/20 09:12 Enoxaparin 40 Mg /0.4 Ml Syringe SUBCUT 40 mg Q24H NENA Administration Sodium Chloride 1,000 mls @ 100 m ls/hr 08/19/20 22:45 08/20/20 02:39 Sodium Chloride 0.9% IV 100 mls/hr .Q10H NENA Administration Sodium Chloride 1,000 mls @ 75 ml s/hr 08/20/20 08:09 08/20/20 23:25 Sodium Chloride 0.9% IV 75 mls/hr .[id number] NENA Administration Levofloxacin/Dextr ose 750 mg in 150 mls @ 100 mls/hr 08/20/20 18:00 08/20/20 18:54 Levaquin-D5w IV 100 mls/hr Q24H NENA Administration Protocol Metronidazole 500 mg in 100 mls @ 100 mls/hr 08/20/20 17:45 08/21/20 02:05 Flagyl Iv IV 100 mls/hr Q8H NENA Administration Protocol Lidocaine 1 patch 08/20/20 19:00 08/20/20 19:57 Lidocaine 5% Pat ch TOPICAL 1 patch [id number] NENA Administration Lisinopril 20 mg 08/20/20 08:09 08/21/20 04:51 Lisinopril 20 Mg Tablet PO 20 mg DAILY@0500 NENA Administration Nicotine Polacrile x 2 mg 08/20/20 17:42 08/21/20 03:30 Nicotine 2 Mg Gu m BUCCAL 2 mg Q1H PRN Administration WITHDRAWAL Pantoprazole Sodiu m 40 mg 08/20/20 09:00 08/20/20 09:[address] 40 Mg Tablet PO 40 mg DAILY NENA Administration PFSH NPU PFSH: Medical History Chronic pain of both knees Patient has fair control of pain with current treatment through pain management. Patient is taking [place] and Ultram Depression Patient is well controlled with Cymbalta 80mg. Encounter for long-term use of opiate analgesic GERD (gastroesophageal reflux disease) Patient is well controlled with Prilosec 40mg daily Hypertension Patient is well controlled with Lisinopril 20mg Intervertebral disc disorder with radiculopathy of lumbosacral region Lumbar post-laminectomy syndrome 01/13/2016 bilateral L4-L5 hemilaminotomy/discectomy/foraminotomy Lumbar stenosis with neurogenic claudication Morbid obesity with BMI of 40.0-44.9, adult Opioid contract exists UTI (urinary tract infection), bacterial Surgical History History of cervical spinal surgery 08/04/2010 Dr. Aleksander Juarez. C5-C6, C6-C7 ACDFF, C6 corpectomy. History of lumbar surgery 01/13/2016 Dr. Aleksander Juarez. Bilateral L4-L5 hemilaminotomy/discectomy/ foraminotomy History of shoulder surgery Family History Other Family history non-contributory Social History Smoking and tobacco status: current some day smoker Alcohol intake: never Household members: spouse Marital status: Current occupational status: disabled History of recent travel: No Mental Status Exam MSE Comments: This is an obese versus morbidly obese white female looking older than her stated age with a hospital gown on with adequate grooming and eye contact. No abnormal movements. Cooperative and no distress. Speech was normal rate and volume. Mood described as pretty good, affect euthymic. Thought process organized. Thought content: Patient denied any suicidal or homicidal ideation, there were no delusions reported or noted, she denied any auditory or visual hallucinations. Attention and concentration were intact and memory appeared reliable but none were formally tested. She is alert and oriented x3. Insight and judgment appear fair and impulse control appears limited. Vitals/I&O/Wt Last Vital Signs Temp 97.9 F 08/21/20 04:00 Pulse 83 08/21/20 04:00 Resp 20 H 08/21/20 04:00 BP 156/86 08/21/20 04:00 Pulse Ox 95 08/21/20 04:00 08/20/20 08/20/20 08/21/20 14:59 22:59 06:59 Intake Total 240 / 240 1100 / 1340 Output Total 1000 / 1000 1200 / 2200 Balance 240 / 240 100 / 340 -1200 / -860 Weight last 48 hrs Weight 109.769 kg Physical Exam Urinary Catheter Management^: Coude: Cath Placed During This Visit: yes Reason for Continuing Indwelling Catheter: Acute Urinary Retention or Obstruction Urinary Catheter Date of Insertion: 08/20/20 Data NPU Micro: Micro: Microbiology 08/20/20 12:38 Blood Culture - Pr eliminary Blood [facility] 08/20/20 12:34 Blood Culture - Pr eliminary Blood SPECIMEN [facility] Microbiology 08/20/20 12:38 Blood Blood Culture - Preliminary SPECIMEN COLLECTED 08/20/20 12:34 Blood Blood Culture - Preliminary SPECIMEN COLLECTED A&P Assessment and plan (1) Opioid overdose: Status: Acute (2) Aspiration pneumonitis: Status: Acute (3) Toxic metabolic encephalopathy: Status: Acute (4) UTI (urinary tract infection), bacterial: Status: Acute (5) Morbid obesity with BMI of 40.0-44.9, adult: Status: Chronic (6) History of cervical spinal surgery: Status: Chronic (7) Lumbar stenosis with neurogenic claudication: Status: Chronic (8) Intervertebral disc disorder with radiculopathy of lumbosacral region: Status: Chronic (9) Lumbar post-laminectomy syndrome: Status: Chronic (10) Dependent on walker for ambulation: Status: Acute (11) Chronic low back pain: Status: Acute (12) Opioid contract exists: Status: Chronic (13) Encounter for long-term use of opiate analgesic: Status: Chronic (14) GERD (gastroesophageal reflux disease): Status: Chronic Qualifiers: Esophagitis presence: esophagitis presence not specified Qualified Code(s): K21.9 - Gastro-esophageal reflux disease without esophagitis (15) Hypertension: Status: Chronic (16) Chronic pain of both knees: Status: Chronic (17) Depression: Status: Chronic Additional A&P Information This is a 60-year-old white female with a long history of depression and chronic pain with daily opiate use who presented to the hospital with altered mental status with clear determination of the likely contributing factors for her encephalopathy/presentation. No other psychiatric concerns were noted. 1. Continue current medication. 2. Agree with assessment of the causes of altered mental status but no other signs or symptoms of contributory psychiatric issues. 3. No need for psychiatric inpatient services so agree with discharge when otherwise deemed medically stable. 4. Please let me know if I can be of further assistance. Attestations NPU Medical Necessity Statement*: N/A. Please see the primary team note for determination of medical necessity, however no need for additional psychiatric services are noted. Coding Level of Care Code Acute Paleology Professor for Chg Fwd Diagnoses Opioid overdose T40.2X1A Aspiration pneumonitis J69.0 Toxic metabolic encephalopathy G92 UTI (urinary tract infection), bacterial N39.0; A49.9 Morbid obesity with BMI of 40.0-44.9, adult E66.01; Z68.41 History of cervical spinal surgery Z98.890 Lumbar stenosis with neurogenic claudication M48.062 Intervertebral disc disorder with radiculopathy of lumbosacral region M51.17 Lumbar post-laminectomy syndrome M96.1 Dependent on walker for ambulation Z99.89 Chronic low back pain M54.5; G89.29 Opioid contract exists Z79.891 Encounter for long-term use of opiate analgesic Z79.891 GERD (gastroesophageal reflux disease) K21.9 Esophagitis presence: esophagitis presence not specified Hypertension I10 Chronic pain of both knees M25.561; M25.562; G89.29 Depression F32.9
[2020-08-21 06:25] LABS: Glucose Point of Care 123 mg/dL (70-110)
[2020-08-21] MEDS: lidocaine 5% Patch 1 PATCH TOPICAL (08:47)
[2020-08-21] MEDS: pantoprazole DR 40 mg Tablet PO (08:47)
[2020-08-21] MEDS: enoxaparin 40 mg/0.4 mL Syringe SUBCUT (08:48)
[2020-08-21] MEDS: sodium chloride 0.9% 1,000 ML 75 ML IV (11:03)
[2020-08-21 11:08] LABS: Glucose Point of Care 120 mg/dL (70-110)
--- NOTE | 2020-08-21 14:03 | P.DS_ITS ---
Discharge Providers Date of Admission: 08/20/20 05:10 Date of Discharge: August 21, 2020 Attending Provider at Admission: Nathalie Baptiste MD Attending Provider at Discharge: Neftali Cordon MD Primary Care Provider: LEONORA Roberts Diagnoses at Discharge Discharge Diagnosis (1) Hallucinations: Status: Acute Permanent problem details: Resolved (2) Acute dehydration: Status: Acute Permanent problem details: Resolved (3) Frequent falls: Status: Acute (4) Toxic metabolic encephalopathy: Status: Acute Permanent problem details: Opioid induced. Resolved (5) Aspiration pneumonitis: Status: Acute (6) Opioid overdose: Status: Acute Permanent problem details: Unintentional Reason for Visit Reason for Visit: HALLUCINATING/2 DAYS Hospital Course Hospital Course Patient with chronic back pain developed recent exacerbation of the left sciatica. Reports that she has been taking her pain medications every 8 hours for the last several days as she was unable to get up and ambulate due to severe pain. She usually takes tramadol several times a day but Colon was prescribed to as needed. She was diagnosed with acute opioid induced encephalopathy. She was dehydrated and was treated with IV fluids. She had evidence of aspiration pneumonitis on imaging and she was started on Levaquin and Flagyl. This morning patient reports feeling back to her normal baseline and strong enough to go home. She denies any shortness of breath or chest pain. Denies any cough. Denies abdominal pain or problems with bowel movement. I will continue Levaquin for 3 more days. I had extensive discussion regarding importance of limiting opioid medications and she will stop taking Colon and continue with her usual tramadol dose which she was able to tolerate for many years. Reports that she is supposed to see her pain clinic physician for left- sided sciatica nerve procedure similarly as she had done on the right side. Patient felt comfortable with treatment plan and will take [id number] Tylenol if needed in addition to tramadol. She is working on weight reduction to qualify for surgery. Physical Exam Const: COMMON NORMALS: no acute distress and patient oriented x3 Resp: COMMON NORMALS: normal respiratory effort and clear to auscultation bilaterally AUSCULTATION: clear to auscultation bilaterally Cardio: COMMON NORMALS: regular rate, regular rhythm and S2 normal heart sound present RATE: regular rate RHYTHM: regular rhythm HEART SOUNDS: S2 normal heart sound present OTHER: No lower extremity edema GI: COMMON NORMALS: Normal to inspection, nondistended, normoactive bowel sounds present, Soft to palpation and non-tender PALPATION: Yes Soft to palpation Neuro: COMMON NORMALS: patient oriented x3 and no focal motor deficits Urinary Catheter Management^: Coude: Cath Placed During This Visit: yes Reason for Continuing Indwelling Catheter: Acute Urinary Retention or Obstruction Urinary Catheter Date of Insertion: 08/20/20 Discharge Data Data Completed and Pending: Completed Studies During Hospitalization Category Date Time Status CT angio chest w abd pel w con Rout ine Cat Scan 08/20/20 11:[address] head wo con* [id number] Stat Cat Scan 08/19/20 22:35 Completed Pending at discharge Category Date Time Status Blood Culture Sta t Lab 08/20/20 12:38 Results Complete Blood Co unt w/Auto AM LABS Lab 08/22/20 04:00 Ordered Complete Blood Co unt w/Auto AM LABS Lab 08/23/20 04:00 Ordered Comprehensive Met abolic Panel AM LA BS Lab 08/22/20 04:00 Ordered Comprehensive Met abolic Panel AM LA BS Lab 08/23/20 04:00 Ordered MRSA by PCR Paul ne Lab 08/20/20 19:50 Received MR lumbar spine w o/w con [id number] Rout ine MRI 08/21/20 08:09 Ordered Labs from last 24 hours 08/21/20 08/21/20 08/21/20 11:05 06:12 04:15 WBC RBC Hgb Hct MCV MCH MCHC RDW Plt Count MPV Neut % (Auto) Lymph % (Auto) [place] % (Auto) Eos % (Auto) Baso % (Auto) Neut # (Auto) Lymph # (Auto) [place] # (Auto) Eos # (Auto) Baso # (Auto) Nucleated RBC % (a uto) Nucleated RBCs # Sodium 135 L Potassium 3.3 L Chloride 98 Carbon Dioxide 27 Anion Gap 13.3 BUN 7 Creatinine 0.6 GFR Calculation 102.3 Glucose 111 POC Glucose 120 123 Calculated Osmolal ity 279 L Lactate Calcium 8.6 Total Bilirubin 0.4 AST 35 H ALT 40 H Alkaline Phosphata se 71 Total Protein 6.1 L Albumin 3.4 L Globulin 2.7 08/21/20 08/20/20 08/20/20 04:15 20:30 17:50 WBC 10.2 H RBC 4.56 Hgb 11.3 L Hct 36.4 L MCV 79.8 L MCH 24.8 L MCHC 31.0 RDW 17.9 H Plt Count 212 MPV 11.4 H Neut % (Auto) 75.8 Lymph % (Auto) 12.9 [place] % (Auto) 9.6 Eos % (Auto) 0.6 Baso % (Auto) 0.5 Neut # (Auto) 7.70 Lymph # (Auto) 1.3 [place] # (Auto) 1.0 H Eos # (Auto) 0.1 Baso # (Auto) 0.1 Nucleated RBC % (a uto) 0 Nucleated RBCs # 0.0 Sodium Potassium Chloride Carbon Dioxide Anion Gap BUN Creatinine GFR Calculation Glucose POC Glucose 122 Calculated Osmolal ity Lactate 0.8 Calcium Total Bilirubin AST ALT Alkaline Phosphata se Total Protein Albumin Globulin Vitals: Last Vital Signs Temp 98.2 F 08/21/20 11:11 Pulse 85 08/21/20 13:21 Resp 18 08/21/20 11:11 BP 148/90 08/21/20 11:11 Pulse Ox 95 08/21/20 13:21 Discharge Plan Discharge Patient Disposition: Home Condition: Stable Prescriptions: New levofloxacin 750 mg tablet 750 mg PO DAILY 3 Days RF: 0 sennosides-docusate sodium [Docuzen] 8.6-50 mg tablet 1 tab-cap PO DAILY Qty: 30 RF: 0 Continued Complete Multivitamin Tablet 1 tab PO QAM@0500 RF: 0 calcium carbonate [Calcium 500] 500 mg calcium (1,250 mg) tablet,chewable 500 mg PO DAILY@0500 RF: 0 tramadol 50 mg tablet 100 mg PO TID PRN (Reason: pain) 30 Days Qty: 180 RF: 1 cyclobenzaprine 10 mg tablet 10 mg PO TID PRN (Reason: muscle spasm) 30 Days Qty: 90 RF: 1 diclofenac sodium 1 % gel 2 gm TOPICAL BID PRN (Reason: joint pain) Qty: 100 RF: 5 Hair,Skin and Nails Tablet 1 tab PO DAILY@0500 RF: 0 Vitamin B-12 1 tab PO DAILY@0500 RF: 0 lisinopril 20 mg tablet 20 mg PO DAILY@0500 RF: 0 omeprazole 40 mg capsule,delayed release(DR/EC) 40 mg PO .Q24@0500 RF: 0 duloxetine 20 mg capsule,delayed release(DR/EC) 20 mg PO DAILY@2200 RF: 0 duloxetine 60 mg capsule, delayed rel sprinkle 60 mg PO DAILY@0500 RF: 0 Discontinued hydrocodone-acetaminophen 10-325 mg tablet 1 tab PO TID PRN (Reason: pain) 30 Days Qty: 90 RF: 0 Discharge Orders: Discharge Order (Routine); Ordered 08/21/20 Ordered By: Neftali Cordon Referrals: VIPIN Deleon, MARKETING CONTENT SPECIALIST [Primary Care Provider] - Discharge Diet: Advance as tolerated Discharge Activity: Increase activity as tolerated Activity Restrictions/Additional Instructions: Please call your doctor or present to emergency department if your condition worsens or you develop diarrhea, lightheadedness, fatigue or see blood in your stool or black stool. Please discontinue Colon as we have discussed and see pain clinic physician as soon as possible for nerve block procedure. Discharge Attestations Time Spent in Discharge Care*: greater than 30 min Quality Metrics Clinical Quality Measures During this hospital stay, did patient experience: None Coding Level of Care Code Acute Plasma Specialist for g Fwd Exam Detailed Diagnoses Hallucinations R44.3 Acute dehydration E86.0 Frequent falls R29.6 Toxic metabolic encephalopathy G92 Aspiration pneumonitis J69.0 Opioid overdose T40.2X1A
--- NOTE | 2020-08-21 14:09 | PC.CHAP ---
Pastoral Care Encounter/Spiritual Assessment Type of Contact [] Declined on call pharmacy technician visit [] Patient/Family/Request visit [] Outpatient visit [] Follow-up visit [] Physician referral [] Code/Alert [x] Routine visit [] Staff referral [] Actively dying [] Patient sleeping [] Family support [] [] Out of room [] Palliative care [] [] Receiving care in room [] Pre-surgical visit [] Trauma [] Long length of stay [] ICU visit [] Other: Relational/Emotional Strength [] Patient feels connected with others/family/visitors/staff [] Distress [] Loneliness/isolation [] Abandonment Spirituality of Patient [] Person of Vivien [] Attends Shinto of their Vivien [] Believes in Prayer [] Reads Bible or Worship materials [] There are Spiritual issues to be addressed Paste Up Artist Interventions [] Prayer [] Active listening [] Non-anxious presence [] Spiritual/emotional support [] Crisis/trauma care [] Spiritual counseling [] Bereavement support [] Provided bereavement packet [] Provided Bible/devotional materials [] Provided toy/stuffed animal, coloring book to patient or family member [] Provided Communion [] Anointing/[place] [] Salvation [] Completed spiritual assessment [] Other: Impact on Illness or Injury [] Angry [] Fearful [] Anxious [] Often cries [] Exhaustion [] Unable to work [] Unable to attend oriental orthodox [] Unable to walk/stand [] Unable to read [] Unable to drive [] Unable to eat/drink [] Unable to sleep [] Unable to be with family [] Patient intubated [] Other: Summary Time spent with patient
[2020-08-21] MEDS: potassium chloride ER 20 mEq Tablet 40 MEQ PO (14:53)
== END 2020-08-21 16:47 | disposition home or self-care (01) ==
LOC: ER 08-20 03:53 → MEDSURG 08-20 05:41
PROVIDERS: Internal Medicine; Admitting Provider Internal Medicine; Emergency Provider Emergency Medicine; PCP Nurse Practitioner Family; Visit Provider Internal Medicine
DX: R44.3 Hallucinations, unspecified (principal); E86.0 Dehydration; R29.6 Repeated falls; F32.9 Major depressive disorder, single episode, unspecified; K21.9 Gastro-esophageal reflux disease without esophagitis; Z79.891 Long term (current) use of opiate analgesic; G89.29 Other chronic pain; M25.562 Pain in left knee; M25.561 Pain in right knee; I10 Essential (primary) hypertension; E66.01 Morbid (severe) obesity due to excess calories; Z68.41 Body mass index [BMI] 40.0-44.9, adult; F17.210 Nicotine dependence, cigarettes, uncomplicated; G92 Toxic encephalopathy; J69.0 Pneumonitis due to inhalation of food and vomit; T40.2X1A Poisoning by other opioids, accidental (unintentional), initial encounter; N39.0 Urinary tract infection, site not specified; A49.9 Bacterial infection, unspecified; Z98.890 Other specified postprocedural states; M48.062 Spinal stenosis, lumbar region with neurogenic claudication; M51.17 Intervertebral disc disorders with radiculopathy, lumbosacral region; M96.1 Postlaminectomy syndrome, not elsewhere classified; Z99.89 Dependence on other enabling machines and devices
CPT/HCPCS: 12345; 36415; 36416; 51702; 70450; 71275; 74177; 80053; 80306; 80307; 81003; 82962; 83605; 84295; 84443; 84484; 85025; 85610; 87040; 87641; 93005; 94664; 96361; 96365; 96366; 96367; 96372; 96375; 97162; 99284; 99291; 99292; G0378; J1650; J1956; J2270; J2405; J7030; Q9967; S0030

== ENCOUNTER → 2020-09-12 10:11 | Outpatient (BNVA) | payer MEDICARE, MEDICAID, SELFPAY | PROVIDERS: PCP Nurse Practitioner Family; Visit Provider Anesthesiology | DX: G89.29 Other chronic pain (principal); M48.062 Spinal stenosis, lumbar region with neurogenic claudication; M51.17 Intervertebral disc disorders with radiculopathy, lumbosacral region; M96.1 Postlaminectomy syndrome, not elsewhere classified | CPT/HCPCS: 62323; J1040; J3490 ==

== ENCOUNTER → 2020-10-03 13:20 | Outpatient (BNVA) | payer MEDICARE, MEDICAID, SELFPAY | PROVIDERS: PCP Nurse Practitioner Family; Visit Provider Nurse Practitioner | DX: G89.29 Other chronic pain (principal); M48.062 Spinal stenosis, lumbar region with neurogenic claudication; M51.17 Intervertebral disc disorders with radiculopathy, lumbosacral region; M96.1 Postlaminectomy syndrome, not elsewhere classified; M25.561 Pain in right knee; M25.562 Pain in left knee; Z99.89 Dependence on other enabling machines and devices; Z98.890 Other specified postprocedural states; Z79.891 Long term (current) use of opiate analgesic | CPT/HCPCS: 99214 ==

== ENCOUNTER → 2020-11-06 12:16 | Outpatient (BNVA) | payer MEDICARE, MEDICAID, SELFPAY | PROVIDERS: PCP Nurse Practitioner Family; Visit Provider Nurse Practitioner Family | DX: I10 Essential (primary) hypertension (principal); D64.9 Anemia, unspecified; D51.9 Vitamin B12 deficiency anemia, unspecified; E55.9 Vitamin D deficiency, unspecified; Z79.899 Other long term (current) drug therapy; Z13.6 Encounter for screening for cardiovascular disorders; A49.9 Bacterial infection, unspecified; N39.0 Urinary tract infection, site not specified | CPT/HCPCS: 80053; 80061; 81003; 82306; 82607; 83036; 83550; 84439; 84443; 84481; 85025 ==

== ENCOUNTER 2020-12-09 15:36 | Outpatient (CLI) | payer MEDICARE, MEDICAID, SELFPAY ==
--- NOTE | 2020-12-09 15:52 | MR_ITS ---
WS: [id number] MRI LUMBAR SPINE NONCONTRAST TECHNIQUE: Sagittal T1, T2 and STIR imaging. Axial T1 and T2 imaging. CLINICAL INFORMATION: PAIN COMPARISON: March 2020 FINDINGS: Anterior wedging with mild compression of the T11 vertebral body superior endplate with mild edema is new compared to previous. Anterior wedging at this level with loss of approximately 25% vertebral maylin dy height anteriorly. No retropulsion. Prior postoperative changes L4-5 hemilaminectomy with partial discectomy. Prominent epidural fat cont ributes to central canal stenosis throughout the lumbar spine. Prior postoperative changes cervical s pine seen on the marketing program coordinator imaging at C5-C7 ACDF. Mild thoracic kyphosis. T12-L1: Mild disc bulging with mild central canal stenosis and slight effacement of the ventral theca l sac unchanged. L1-L2: Mild annular bulging. Mild right and no significant left foraminal narrowing. Mild facet arthr opathy. Mild to moderate narrowing of the thecal sac at this level due to prominent epidural fat L2-L3: Mild annular bulging with slight narrowing of the subarticular recess bilaterally. Mild left g reater than right foraminal narrowing. Mild facet arthropathy. Moderate narrowing of the thecal sac d ue to prominent epidural fat. L3-L4: Mild annular bulging with moderate to severe central canal stenosis with prominent epidural fa t. Right foraminal protrusion contacts the exiting right L3 nerve root with moderate right and mild l eft foraminal narrowing. Moderate facet arthropathy. L4-L5: Postoperative changes hemilaminectomy and Partial discectomy. Right foraminal protrusion with moderate right foraminal narrowing contacts the exiting right L4 nerve root. Left foramen is patent. Moderate facet arthropathy. Clumping of the cauda equina nerve roots at this level dorsally unchanged L5-S1: Mild annular bulging. Moderate bilateral bony foraminal narrowing. Impingement on the exiting L5 nerve roots bilaterally MR/MR lumbar spine wo con* [id number] IMPRESSION: 1. New acute mild compression of the T11 superior endplate with anterior wedgi ng described above. This is new from previous. No retropulsion. 2. Prior postoperative changes L4-5 laminectomy defects with partial discectom y. No recurrent disc extrusion 3. Moderate to severe central canal stenosis L3-4 due to prominent dorsal epid ural fat in combination with mild disc bulging and moderate facet arthropathy. Narrowing of the thecal sac at this level. 4. Mild to moderate central canal stenosis at T12-L1, L1-2 and L2-L3 unchanged . Prominent epidural fat contributes to central canal stenosis. 5. Mild clumping of the cauda equina nerve rootlets at L4-5 can be seen with a rachnoiditis unchanged. 6. Unchanged multilevel mild to moderate foraminal narrowing at left L2-3, rig ht L3-4, and bilateral L5-S1 7. Right foraminal disc osteophyte protrusion L4-5 impinges the exiting right L4 nerve root. Recommend correlation for right L4 nerve root symptoms. This is unchanged
== END 2020-12-09 15:37 | disposition home or self-care (01) ==
LOC: RADWPI 15:44
PROVIDERS: PCP Nurse Practitioner Family; Visit Provider Orthopaedic Surgery
DX: M25.78 Osteophyte, vertebrae (principal); M51.26 Other intervertebral disc displacement, lumbar region; M48.54XA Collapsed vertebra, not elsewhere classified, thoracic region, initial encounter for fracture; M96.1 Postlaminectomy syndrome, not elsewhere classified; M48.061 Spinal stenosis, lumbar region without neurogenic claudication; M48.04 Spinal stenosis, thoracic region
CPT/HCPCS: 72148

== ENCOUNTER → 2020-12-11 11:11 | Outpatient (BNVA) | payer MEDICARE, MEDICAID, SELFPAY | PROVIDERS: PCP Nurse Practitioner Family; Visit Provider Nurse Practitioner | DX: G89.29 Other chronic pain (principal); M54.5 Low back pain; M48.062 Spinal stenosis, lumbar region with neurogenic claudication; M51.17 Intervertebral disc disorders with radiculopathy, lumbosacral region; M96.1 Postlaminectomy syndrome, not elsewhere classified; M25.561 Pain in right knee; M25.562 Pain in left knee; Z98.890 Other specified postprocedural states; Z79.891 Long term (current) use of opiate analgesic | CPT/HCPCS: 99213 ==

== ENCOUNTER → 2021-01-20 11:16 | Outpatient (BNVA) | payer MEDICARE, MEDICAID, SELFPAY | PROVIDERS: PCP Nurse Practitioner Family; Visit Provider Orthopaedic Surgery | DX: Z01.818 Encounter for other preprocedural examination (principal); Z20.822 Contact with and (suspected) exposure to COVID-19 | CPT/HCPCS: 87635 ==

== ENCOUNTER 2021-01-22 11:14 | Day surgery (SDC) | payer MEDICARE, MEDICAID, SELFPAY ==
[2021-01-15 13:38] VITALS: BMI 43.9
[2021-01-15 14:30] LABS: Basophils # 0.1 10^3/uL (0.0-0.1); Basophils % 0.6 %; Eosinophils # 0.3 10^3/uL (0.0-0.8); Eosinophils % 3.2 %; Hematocrit 42.8 % (37.0-47.0); Hemoglobin 13.1 g/dL (11.5-15.3); Lymphocytes # 2.5 10^3/uL (0.8-4.8); Lymphocytes % 29.4 %; Mean Corpuscular HGB Conc 30.6 g/dL (30.0-36.0); Mean Corpuscular Hemoglobin 25.8 pg (28.0-34.0); Mean Corpuscular Volume 84.4 fL (81-99); Mean Platelet Volume 10.9 fL (7.4-10.4); Monocytes # 0.8 10^3/uL (0.2-0.9); Monocytes % 9.2 %; Neutrophils # 4.81 10^3/uL (1.8-7.7); Neutrophils % 57.4 %; Nucleated Red Blood Cells % 0 %; Platelet Count 236 10^3/cmm (130-400); Red Blood Count 5.07 10^6/uL (4.1-5.3); Red Cell Distribution Width 16.5 % (12.1-15.1); White Blood Count 8.4 10^3/uL (4.0-10.0)
--- NOTE | 2021-01-15 14:38 | P.ANESASSM_ITS ---
Pre-Anesthetic Assessment Pre-Anesthetic Assessment: Height/Weight: Height 1.63 m Weight 116.12 kg Preop Diagnosis: lumbar stenosis Proposed Procedure: Operation Date: 01/22/21 09:00 Proposed Procedures p LUMBAR DECOMPRESSION ? 5/S1 [id number] M48.062(Not Applicable) - Raul Weldon, DO Was Beta Flor taken within 24 hours: N/A Was Clonidine taken within 24 hours: N/A Social: Social History: No alcohol and No tobacco Exam: Pre-Anes Outpt Exam: alert, oriented x 3, clear to auscultation bilaterally and regular rate & rhythm Airway: Submandibular: WNL Cervical ROM: WNL MP: 2 Additional comments: poor dentition CV/HEM: CV/HEM: Anemia and HTN GI: GI: GERD Metabolic: Metabolic: Morbid obesity Musc/skel: Musc/skel: Lower Back Pain and OA/DJD Comments: Chronic pain/opioid Anesthetic Plan: ASA status: 3 Anesthesia: General Risk of > 500 ml blood loss (7ml/kg in children): No PFSH Anesthesia PFSH: Medical History Anemia Chronic pain of both knees Patient has fair control of pain with current treatment through pain management. Patient is taking [place] and Ultram Depression Patient is well controlled with Cymbalta 80mg. Encounter for long-term use of opiate analgesic GERD (gastroesophageal reflux disease) Patient is well controlled with Prilosec 40mg daily Hypertension Patient is well controlled with Lisinopril 20mg Hypertension screen Intervertebral disc disorder with radiculopathy of lumbosacral region Lumbar post-laminectomy syndrome 01/13/2016 bilateral L4-L5 hemilaminotomy/discectomy/foraminotomy Lumbar stenosis with neurogenic claudication Medication management Morbid obesity with BMI of 40.0-44.9, adult Opioid contract exists UTI (urinary tract infection), bacterial Vitamin B12 deficiency anemia Vitamin D deficiency Surgical History (Updated 01/15/21 @ 13:49 by Keena Phan) History of cervical spinal surgery 08/04/2010 Dr. Aleksander Juarez. C5-C6, C6-C7 ACDFF, C6 corpectomy. History of lumbar surgery 01/13/2016 Dr. Aleksander Juarez. Bilateral L4-L5 hemilaminotomy/discectomy/ foraminotomy History of shoulder surgery Family History Other Family history non-contributory Social History Smoking and tobacco status: current some day smoker Alcohol intake: never Household members: spouse Marital status: Current occupational status: disabled History of recent travel: No Data Anesthesia CBC & Chem 7: 01/15/21 13:48 01/15/21 13:48 Other Labs: Laboratory Results - last 48 hr 01/15/21 13:48 WBC 8.4 RBC 5.07 Hgb 13.1 Hct 42.8 MCV 84.4 MCH 25.8 L MCHC 30.6 RDW 16.5 H Plt Count 236 MPV 10.9 H Neut % (Auto) 57.4 Lymph % (Auto) 29.4 [place] % (Auto) 9.2 Eos % (Auto) 3.2 Baso % (Auto) 0.6 Neut # (Auto) 4.81 Lymph # (Auto) 2.5 [place] # (Auto) 0.8 Eos # (Auto) 0.3 Baso # (Auto) 0.1 Nucleated RBC % (auto) 0 Nucleated RBCs # 0.0 Cardiac Studies: No Data to Display
[2021-01-15 14:44] LABS: Anion Gap 11.1 (5-19); Blood Urea Nitrogen 9 mg/dL (6-20); Calcium 8.7 mg/dL (8.5-10.5); Carbon Dioxide 30 mmol/L (22-29); Chloride 98 mmol/L (98-107); Glomerular Filtration Rate 85.6 mL/min (90-130); Glucose 114 mg/dL (65-115); Osmolality Calculated 280 mOsm/kg (285-295); Potassium 4.1 mmol/L (3.5-5.1); Sodium 135 mmol/L (136-145)
[2021-01-22] VITALS (10 sets, daily range): BP systolic 156–179; BP diastolic 86–109; PULSE 70–90; RESP 16–20; TEMP 36.1–36.2; O2SAT 90–99
--- NOTE | 2021-01-22 | SCC_ITS ---
Procedure Done: L3/4 Laminectomy and partial facectomy L5/S1 laminectomy and partial facetectomy 8 seconds of fluoroscopic guidance, for a cumulative dose of 15.0 mGy, was provided to Dr. Weldon by the radiology department. C-arm images of the lumbar psine were saved for the patient's permanent record. [facility]
--- NOTE | 2021-01-22 | XR_ITS ---
WS: [id number] Lumbar spine, C-arm fluoroscopy, 01/22/2021 Clinical Data: l 3/4 AND L 5/S1 DECOMPRESSION Comparison: Lumbar spine, 03/26/2020. Findings: Dr. Weldon performed decompression at L3-L4 and L5-S1. XR/XR lumbar spine 2-3V* 41000 Impression: Lumbar decompression.
--- NOTE | 2021-01-22 11:58 | ANES.PAUD2 ---
Pre-Anesthetic Update Pre-Anesthetic Assessment: Date of Surgery/Procedure: 01/22/21 Preop Diagnosis: lumbar stenosis Proposed Procedure: Operation Date: 01/22/21 13:15 Proposed Procedures p LUMBAR DECOMPRESSION ? 5/S1 [id number] M48.062(Not Applicable) - Raul Weldon, DO Any changes to Pre-Anesthetic Assessment?: No Last Intake: Intake Last Liquid Date 01/21/21 Last Liquid Time 20:00 Last Solid Date 01/21/21 Last Solid Time 20:00 Vitals: Temperature 97 F L 01/22/21 11:44 Temperature Source Temporal Artery S can 01/22/21 11:44 Pulse Rate 90 01/22/21 11:44 Pulse Rhythm 01/22/21 11:39 Pulse Strength 3+ Normal 01/22/21 11:39 Blood Pressure 160/86 01/22/21 11:44 Blood Pressure Candice n 110 01/22/21 11:44 Pulse Oximetry 95 01/22/21 11:44 Oxygen Delivery Me thod 01/22/21 11:44 Exam: Pre-Anes Outpt Exam: alert, oriented x 3, clear to auscultation bilaterally and regular rate & rhythm Cardiac Studies: No Data to Display
[2021-01-22] MEDS: sodium chloride 0.9% 1,000 ML 30 ML IV (12:02)
[2021-01-22] MEDS: fentaNYL 50 mcg/mL INJ 2mL IVP (12:03)
--- NOTE | 2021-01-22 12:04 | PM.HP ---
Providers/Chief Complaint Primary Care Provider: LEONORA Roberts Chief Complaint: LUMBAR DECOMPRESSION ? 5/S1 [id number] History of Present Illness Barb Parmar is a 60 year old female Details: New 60 year old female patient here for evaluation of her lumbar spine pain. She feels the oral steriod helped with her low back pain Onset: years Duration: years Characteristics: pressure, ache, burning Severity: 3/10 Location: low back Radiating symptoms: left posterior thigh numb and tingling with weakness Aggravating factors: walking,standing and sitting Alleviating factors: heat Neuro deficits: no incontinence of bowel/bladder, saddle anesthesia. Prior tx: steroid injections at L5/S which provided good relief for 2 days, Review of Systems Narrative: General: Reports: 10 or more systems reviewed and unremarkable except as noted in History and below Const: Denies: fever(s) or chills Eyes: Denies: change in vision ENMT: Denies: throat pain Card: Denies: chest pain or dyspnea on exertion Resp: Denies: dyspnea, productive cough or wheezing GI: Denies: abdominal pain, nausea or vomiting Musc: Reports: limited range of motion Skin/Breast: Denies: changes in skin color or dry skin Neuro: Reports: numbness in extremities and weakness in extremities Psych: Denies: anxiety Alfred/Lymph: Denies: easy bruising or easy bleedin Medications/Allergies Home Medications Medication Instructions Recorded Confirmed Last Taken Type multivitamin,xe-qpwa-nrjlvweg 1 tab PO QAM@0500 09/18/19 01/15/21 08/19/20 History calcium carbonate 500 mg calcium 500 mg PO DAILY@0500 03/05/20 01/15/21 08/19/20 History (1,250 mg) chewable tablet diclofenac sodium 1 % topical gel 2 gm TOPICAL BID PRN #100 gm 07/16/20 01/15/21 08/19/20 Rx Vitamin B-12 1 tab PO DAILY@0500 08/19/20 01/15/21 08/19/20 History duloxetine 60 mg PO DAILY@0500 08/19/20 01/15/21 08/19/20 History multivitamin with minerals 1 tab PO DAILY@0500 08/19/20 01/15/21 08/19/20 History [Hair,Skin and Nails] sennosides-docusate sodium 1 tab-cap PO DAILY #30 tab 08/21/20 01/15/21 Unknown Rx [Docuzen] omeprazole 40 mg capsule,delayed See Rx Instructions .ROUTE 10/18/20 01/15/21 Unknown Rx release .COMPLEX #30 cap ferrous gluconate 324 mg (37.5 mg 324 mg PO .every other day 30 Days 11/17/20 01/15/21 Unknown Rx iron) tablet #15 tab cyclobenzaprine 10 mg tablet 10 mg PO TID PRN 30 Days #90 tab 12/11/20 01/15/21 Unknown Rx hydrocodone 10 mg-acetaminophen 1 tab PO TID PRN 30 Days #90 tab 12/11/20 01/15/21 Unknown Rx 325 mg tablet tramadol 50 mg tablet 100 mg PO TID PRN 30 Days #180 tab 12/11/20 01/15/21 Unknown Rx lisinopril 20 mg tablet See Rx Instructions .ROUTE 12/23/20 01/15/21 Unknown Rx .COMPLEX #30 tab duloxetine 20 mg capsule,delayed See Rx Instructions .ROUTE 01/08/21 01/15/21 Unknown Rx release .COMPLEX #90 cap Allergies Allergy/AdvReac Type Severity Reaction Status Date / Time butorphanol [From Stadol] Allergy Severe mental Verified 12/19/20 13:59 status change Penicillins Allergy Intermediate hives Verified 12/19/20 13:59 cefaclor [From Ceclor] Allergy Mild hives Verified 12/19/20 13:59 gabapentin Allergy Mild hives Verified 12/19/20 13:59 PFSH Acute PFSH: Medical History Anemia Chronic pain of both knees Patient has fair control of pain with current treatment through pain management. Patient is taking [place] and Ultram Depression Patient is well controlled with Cymbalta 80mg. Encounter for long-term use of opiate analgesic GERD (gastroesophageal reflux disease) Patient is well controlled with Prilosec 40mg daily Hypertension Patient is well controlled with Lisinopril 20mg Hypertension screen Intervertebral disc disorder with radiculopathy of lumbosacral region Lumbar post-laminectomy syndrome 01/13/2016 bilateral L4-L5 hemilaminotomy/discectomy/foraminotomy Lumbar stenosis with neurogenic claudication Medication management Morbid obesity with BMI of 40.0-44.9, adult Opioid contract exists UTI (urinary tract infection), bacterial Vitamin B12 deficiency anemia Vitamin D deficiency Surgical History (Updated 01/15/21 @ 15:58 by Keena Phan) History of cervical spinal surgery 08/04/2010 Dr. Aleksander Juarez. C5-C6, C6-C7 ACDFF, C6 corpectomy. History of lumbar surgery 01/13/2016 Dr. Aleksander Juarez. Bilateral L4-L5 hemilaminotomy/discectomy/ foraminotomy History of shoulder surgery Family History Other Family history non-contributory Social History Smoking and tobacco status: current some day smoker Alcohol intake: never Household members: spouse Marital status: Current occupational status: disabled History of recent travel: No Vitals/I&O/Wt Last Vital Signs Temp 97 F L 01/22/21 11:44 Pulse 90 01/22/21 11:44 Resp 18 01/22/21 12:03 BP 160/86 01/22/21 11:44 Pulse Ox 95 01/22/21 11:44 Physical Exam Narrative: EXAM NARRATIVE: CONSTITUTIONAL: The patient is a normal appearing [] in no apparent distress. GENERAL: Patient in no acute distress. CARDIAC: Regular rate and rhythm. CHEST: Normal inspiratory effort, normal respiratory rate. ABDOMEN: Soft and nontender. SKIN: Clear, warm and intact. NEURO?PSYCH: The patient is alert and oriented to person, place and time. Sensorv /SILT Motor StrengthShoulder abduction C5 5/5Wrist extension C6 5/5Elbow extension C7 5/5Hand Folder Operator C8 5/5Finger abduction T15/5 Radial/ Ulnar/ Median n intact LowerSensory (SILT)Motor StrengthHin flexion L2/3Ant/inner thigh 5/5Hip adduction L2/3 5/5Knee extension L4 Lat thigh, 5/5Toe dorsiflexion L5 5/5Ankle dorsiflexion L5/ [id number] flexion S1 5/5 DTRBleeps 2+Triceps 2+Brachioradialis 2+Patellar 2+Achilles 2+ MUSCULOSKELETAL: [] UPPEREXTREMITIES: The patient had full active ROM in fingers, wrist, elbow, and shoulder. The patient demonstrated ability to fully flex/extend/abduct/adduct fingers, make ok sign, cross 2nd/3rd digits, extend 1st digit fully.. Radial pulse 2+, CR<2 seconds. LOWER EXTREMITIES: Pt has full, active ROM of toes, ankle, knee, and hip. Dorsalis pedis/posterior tibialis pulses 2+, CR<2 seconds. SPINE: Skin warm, dry, intact. 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
[2021-01-22] MEDS: clindamycin 600 MG/50 ML PREMIX 100 MG IV (12:35)
--- NOTE | 2021-01-22 13:54 | PM.OP ---
Operative Report Date of procedure: January 22, 2021 Pre-op Diagnosis: lumbar stenosis Post-op diagnosis: same Procedure Done: L3/4 Laminectomy and partial facectomy L5/S1 laminectomy and partial facetectomy Surgeon: Raul Weldon Anesthesia: General Estimated blood loss (mL): 10 Condition: stable Disposition: PACU Procedure: Patient is brought to the operative suite. After undergoing anesthesia they are placed in the supine position. All areas of impingement are well padded. Patient is then prepped and draped in the normal sterile fashion. A skin incision is made over the L3-4 level. This is confirmed under c-arm guidance. A series of dilators are passed and the tubular retractor is docked on the L 3 lamina. A bovie is used to clear the soft tissue off the lamina and the L 3/4 facet joint. A high speed mendez is then used to perform the laminectomy and take down the medial aspect of the L 3/4 facet joint. A kerrison rongeure was then used to take down the remaining lamina and smooth the edge of the laminectomy up to the point where the ligamentum flavum attaches. Attention was then brought to the medial aspect of the facet joint. The remaining medial aspect of the superior and inferior aspect of the facet joint were taken down with the kerrison from the pedicle of L3 to L 4. The facet joint had significant hypertrophy. Attention was then brought to the Ligamentum Flavum. The ligament was taken down from the lamina of L3 to L4 and out medially to the remaining facet joint. The ligament was thick. The dura was then exposed. The dura was in good repair. The L3 nerve was then traced with a curette out the L3/4 foramen and found to be adequately decompressed. The L4 nerve was traced with a curette around the L4 pedicle. The lateral recess was opened with a kerrison helping to further decompress the L4 nerve. A skin incision is made over the L5/s1 level. This is confirmed under c-arm guidance. A series of dilators are passed and the tubular retractor is docked on the L5 lamina. A bovie is used to clear the soft tissue off the lamina and the L 5/S1 facet joint. A high speed mendez is then used to perform the laminectomy and take down the medial aspect of the L 5/S1 facet joint. A kerrison rongeure was then used to take down the remaining lamina and smooth the edge of the laminectomy up to the point where the ligamentum flavum attaches. Attention was then brought to the medial aspect of the facet joint. The remaining medial aspect of the superior and inferior aspect of the facet joint were taken down with the kerrison from the pedicle of L5 to S1. The facet joint had significant hypertrophy. Attention was then brought to the Ligamentum Flavum. The ligament was taken down from the lamina of L5 to LS1 and out medially to the remaining facet joint. The ligament was thick. The dura was then exposed. The dura was in good repair. The L5 nerve was then traced with a curette out the L5/S1 foramen and found to be adequately decompressed. The S1 nerve was traced with a curette around the S1 pedicle. The lateral recess was opened with a kerrison helping to further decompress the S1 nerve. Wound is then irrigated copiously with saline and surgiflo is used to stop any bleeding. The tubular retractor is removed and the wound is closed with vicryl and monocryl suture. Glue is then used to protect the wound. A sterile dressing is then placed. Patient was then placed in the supine position and transferred to the PACU in stable condition.
[2021-01-22] MEDS: HYDROmorphone 1 mg/mL INJ 1 mL 0.5 MG IVP (14:02)
--- NOTE | 2021-01-22 14:28 | ANE.PACU2 ---
Inpatient post-anesthesia follow up: Airway intact: Yes Vital signs: Temperature 97.2 F Pulse Rate 86 Respiratory Rate 16 Blood Pressure 164/98 Pulse Oximetry 96 Oxygen Delivery Me thod Room Air Oxygen Flow Rate 6 Fraction of Inspir ed Oxygen Hydration adequate: Yes Nausea and vomiting: No Pain level: 3 Mental status: Baseline
== END 2021-01-22 15:19 | disposition home or self-care (01) ==
PROVIDERS: PCP Nurse Practitioner Family; Visit Provider Orthopaedic Surgery
PROC: (CPT 63005; principal; 2021-01-22 12:55)
DX: M48.062 Spinal stenosis, lumbar region with neurogenic claudication (principal); I10 Essential (primary) hypertension; K21.9 Gastro-esophageal reflux disease without esophagitis; E66.01 Morbid (severe) obesity due to excess calories; Z68.41 Body mass index [BMI] 40.0-44.9, adult; G89.29 Other chronic pain; Z79.891 Long term (current) use of opiate analgesic; F32.9 Major depressive disorder, single episode, unspecified; F17.210 Nicotine dependence, cigarettes, uncomplicated
CPT/HCPCS: 63047; 63048; 72100; 76000; 80048; 85025; 96374; J0690; J1170; J2704; J3010; J3490; J7030

== ENCOUNTER → 2021-01-29 14:05 | Outpatient (BNVA) | payer MEDICARE, MEDICAID, SELFPAY | PROVIDERS: PCP Nurse Practitioner Family; Visit Provider Nurse Practitioner | DX: G89.29 Other chronic pain (principal); M48.062 Spinal stenosis, lumbar region with neurogenic claudication; M51.17 Intervertebral disc disorders with radiculopathy, lumbosacral region; M96.1 Postlaminectomy syndrome, not elsewhere classified; M25.561 Pain in right knee; G62.9 Polyneuropathy, unspecified; F17.210 Nicotine dependence, cigarettes, uncomplicated; Z98.890 Other specified postprocedural states; Z79.891 Long term (current) use of opiate analgesic | CPT/HCPCS: 99214 ==

== ENCOUNTER → 2021-03-07 11:07 | Outpatient (BNVA) | payer MEDICARE, MEDICAID, SELFPAY | PROVIDERS: PCP Nurse Practitioner Family; Visit Provider Anesthesiology | DX: G89.29 Other chronic pain (principal); M51.17 Intervertebral disc disorders with radiculopathy, lumbosacral region; M48.062 Spinal stenosis, lumbar region with neurogenic claudication; M96.1 Postlaminectomy syndrome, not elsewhere classified; M25.561 Pain in right knee; M25.562 Pain in left knee; G62.9 Polyneuropathy, unspecified; F17.210 Nicotine dependence, cigarettes, uncomplicated; Z99.89 Dependence on other enabling machines and devices; Z98.890 Other specified postprocedural states; Z79.891 Long term (current) use of opiate analgesic | CPT/HCPCS: 99214 ==

== ENCOUNTER 2021-03-31 12:41 | Outpatient (CLI) | payer MEDICARE, MEDICAID, SELFPAY ==
--- NOTE | 2021-03-31 13:00 | MM_ITS ---
WS: [id number] BILATERAL SCREENING DIGITAL MAMMOGRAM WITH CAD HISTORY: Z12.31 - Encounter for screening mammogram for malignant neoplasm of breast COMPARISON: 12/10/2017 and 08/27/2016 Bilateral CC and MLO views submitted. Computer aided detection analyzed. Breast composition: There are scattered areas of fibroglandular density. No suspicious masses, microc alcifications or architectural distortion. Benign scattered calcifications in each breast. MM/[place] [id number] IMPRESSION: BI-RADS: 2-Benign FOLLOW UP: 1 Year Follow-up
== END 2021-03-31 12:42 | disposition home or self-care (01) ==
LOC: RADSHAW 12:46
PROVIDERS: PCP Nurse Practitioner Family; Visit Provider Nurse Practitioner Family
DX: Z12.31 Encounter for screening mammogram for malignant neoplasm of breast (principal)
CPT/HCPCS: 77067

== ENCOUNTER → 2021-04-08 14:25 | Outpatient (BNVA) | payer MEDICARE, MEDICAID, SELFPAY | PROVIDERS: PCP Nurse Practitioner Family; Visit Provider Nurse Practitioner Family | DX: D64.9 Anemia, unspecified (principal); M19.90 Unspecified osteoarthritis, unspecified site; G89.29 Other chronic pain; M25.562 Pain in left knee; M25.561 Pain in right knee; F32.9 Major depressive disorder, single episode, unspecified | CPT/HCPCS: 82728; 83550; 85025; 85651; 86038; 86140; 86431 ==

== ENCOUNTER → 2021-04-24 09:59 | Outpatient (BNVA) | payer MEDICARE, MEDICAID, SELFPAY | PROVIDERS: PCP Nurse Practitioner Family; Visit Provider Nurse Practitioner | DX: G89.29 Other chronic pain (principal); M48.062 Spinal stenosis, lumbar region with neurogenic claudication; M51.17 Intervertebral disc disorders with radiculopathy, lumbosacral region; M25.561 Pain in right knee; M25.562 Pain in left knee; M19.90 Unspecified osteoarthritis, unspecified site; M96.1 Postlaminectomy syndrome, not elsewhere classified; G62.9 Polyneuropathy, unspecified; E66.01 Morbid (severe) obesity due to excess calories; Z68.41 Body mass index [BMI] 40.0-44.9, adult; Z79.891 Long term (current) use of opiate analgesic | CPT/HCPCS: 99214 ==

== ENCOUNTER → 2021-06-19 10:14 | Outpatient (BNVA) | payer MEDICARE, MEDICAID, SELFPAY | PROVIDERS: PCP Nurse Practitioner Family; Visit Provider Anesthesiology Pain Medicine | DX: G89.29 Other chronic pain (principal); M48.062 Spinal stenosis, lumbar region with neurogenic claudication; M51.17 Intervertebral disc disorders with radiculopathy, lumbosacral region; M96.1 Postlaminectomy syndrome, not elsewhere classified; E66.01 Morbid (severe) obesity due to excess calories; M79.604 Pain in right leg; M79.605 Pain in left leg; Z68.41 Body mass index [BMI] 40.0-44.9, adult; Z79.891 Long term (current) use of opiate analgesic | CPT/HCPCS: 99204; 99215 ==

== ENCOUNTER → 2021-06-26 12:47 | Outpatient (BNVA) | payer MEDICARE, MEDICAID, SELFPAY | PROVIDERS: PCP Nurse Practitioner Family; Visit Provider Internal Medicine | DX: R79.82 Elevated C-reactive protein (CRP) (principal); R76.8 Other specified abnormal immunological findings in serum; M25.50 Pain in unspecified joint; Z79.899 Other long term (current) drug therapy; Z11.59 Encounter for screening for other viral diseases; Z11.1 Encounter for screening for respiratory tuberculosis; M54.2 Cervicalgia; M48.00 Spinal stenosis, site unspecified; G89.29 Other chronic pain; Z98.84 Bariatric surgery status | CPT/HCPCS: 36415; 80053; 82550; 82607; 82728; 83540; 83735; 84100; 84443; 85025; 85651; 86140; 86160; 86162; 86235; 86255; 86376; 86704; 86803; 87340; 99204 ==

== ENCOUNTER → 2021-07-01 12:53 | Outpatient (BNVA) | payer MEDICARE, MEDICAID, SELFPAY | PROVIDERS: PCP Nurse Practitioner Family; Visit Provider Anesthesiology | DX: G89.29 Other chronic pain (principal); M51.17 Intervertebral disc disorders with radiculopathy, lumbosacral region; M48.062 Spinal stenosis, lumbar region with neurogenic claudication; M96.1 Postlaminectomy syndrome, not elsewhere classified; M19.90 Unspecified osteoarthritis, unspecified site; M25.561 Pain in right knee; M25.562 Pain in left knee; G62.9 Polyneuropathy, unspecified; F17.210 Nicotine dependence, cigarettes, uncomplicated; Z98.890 Other specified postprocedural states; Z79.891 Long term (current) use of opiate analgesic; Z71.6 Tobacco abuse counseling | CPT/HCPCS: 99214 ==

== ENCOUNTER 2021-07-18 15:33 | Outpatient (CLI) | payer MEDICARE, MEDICAID, SELFPAY ==
--- NOTE | 2021-07-18 15:46 | XR_ITS ---
WS: [email or web address] LEFT FOOT: 2 VIEW(S) TECHNIQUE: AP and lateral. HISTORY: M25.50 - Pain in unspecified joint COMPARISON: None available. Diffuse osteopenia. No acute fracture. Moderate narrowing and degeneration at the tarsometatarsal articulations. Possible ankylosis or at le ast severe joint space narrowing at the tibiotalar joint. Very poor definition of the tarsal bones in the lateral foot. This may be due to overlapping and the severe osteopenia. No erosions. Mild soft tissue edema around the ankle and foot. XR/XR foot LT 2V [id number] IMPRESSION: 1. Diffuse osteopenia. 2. Suspect severe degenerative joint disease at the ankle and/or ankylosis. 3. Soft tissue edema surrounding the foot and ankle.
--- NOTE | 2021-07-18 15:46 | XR_ITS ---
WS: [email or web address] LATERAL CERVICAL SPINE: 3 view. Lateral radiographs are performed in upright neutral, flexion and extension to the patient's toleranc e. HISTORY: R76.8 - Other specified abnormal immunological findings COMPARISON: 09/29/2010 Straightening of the normal cervical lordosis. Lower cervical vertebrae are not well visualized due t o shoulders. Minimal anterolisthesis of C3. C6 corpectomy with anterior fusion from C5 to C7. With ex tension to millimeters retrolisthesis of C4. XR/XR cervical spine fl/ex [id number] IMPRESSION: Very mild extension instability at C4. C6 corpectomy with anterior fusion at C5-C7.
--- NOTE | 2021-07-18 15:46 | XR_ITS ---
WS: [email or web address] RIGHT HAND: 2 VIEW(S) TECHNIQUE: PA and lateral. HISTORY: R76.8 - Other specified abnormal immunological findings COMPARISON: None available. No acute fracture or dislocation. Mild interphalangeal joint space narrowing. No erosions. No subluxation. XR/XR hand RT 2V [id number] IMPRESSION: Mild interphalangeal joint space narrowing.
--- NOTE | 2021-07-18 15:46 | XR_ITS ---
WS: [email or web address] RIGHT FOOT: 2 VIEW(S) TECHNIQUE: AP and lateral. HISTORY: M25.50 - Pain in unspecified joint COMPARISON: None available. No acute fracture or dislocation. Diffuse osteopenia. Partial ankylosis at the tarsometatarsal articulations suspected. There is also a nkylosis at the tibiotalar joint space seen best on the lateral projection. No erosions at the metatarsal heads. XR/XR foot RT 2V [id number] IMPRESSION: 1. Osteopenia. 2. 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
--- NOTE | 2021-07-18 15:46 | XR_ITS ---
WS: [email or web address] LEFT HAND: 2 VIEW(S) TECHNIQUE: PA and lateral. HISTORY: R76.8 - Other specified abnormal immunological findings COMPARISON: None available. No acute fracture or dislocation. Mild interphalangeal joint space narrowing. No erosions. No subluxation. No soft tissue edema. XR/XR hand LT 2V [id number] IMPRESSION: Mild interphalangeal joint space narrowing.
--- NOTE | 2021-07-18 15:46 | XR_ITS ---
WS: [email or web address] THORACIC SPINE TECHNIQUE: AP and lateral views are performed. HISTORY: R76.8 - Other specified abnormal immunological findings COMPARISON: 02/26/2010 Increased kyphosis centered at the thoracolumbar junction. Mild anterior wedging is probably the T12 vertebral body. No retropulsion. There is diffuse osteopenia and diffuse mild disc space narrowing. M oderate marginal osteophytes along the RIGHT lateral thoracic spine. XR/XR thoracic spine 3V* [id number] IMPRESSION: 1. 20% T12 compression fracture without retropulsion. This fracture is new sin ce 2009. Also not identified on the prior MRI from 03/04/2020. 2. Mild mid to lower thoracic spondylosis.
== END 2021-07-18 15:34 | disposition home or self-care (01) ==
PROVIDERS: PCP Nurse Practitioner Family; Visit Provider Internal Medicine
DX: R76.8 Other specified abnormal immunological findings in serum (principal); M25.50 Pain in unspecified joint
CPT/HCPCS: 72040; 72072; 73120; 73620

== ENCOUNTER → 2021-07-23 12:56 | Outpatient (BNVA) | payer MEDICARE, MEDICAID, SELFPAY | PROVIDERS: PCP Nurse Practitioner Family; Visit Provider Internal Medicine | DX: R79.82 Elevated C-reactive protein (CRP) (principal); R76.8 Other specified abnormal immunological findings in serum; E55.9 Vitamin D deficiency, unspecified; M19.90 Unspecified osteoarthritis, unspecified site; G62.9 Polyneuropathy, unspecified; E61.1 Iron deficiency; Z98.84 Bariatric surgery status; F17.210 Nicotine dependence, cigarettes, uncomplicated | CPT/HCPCS: 99214 ==

== ENCOUNTER → 2021-08-13 10:06 | Outpatient (BNVA) | payer MEDICARE, MEDICAID, SELFPAY | PROVIDERS: PCP Nurse Practitioner Family; Visit Provider Anesthesiology | DX: G89.29 Other chronic pain (principal); M48.062 Spinal stenosis, lumbar region with neurogenic claudication; M51.17 Intervertebral disc disorders with radiculopathy, lumbosacral region; M47.816 Spondylosis without myelopathy or radiculopathy, lumbar region; M96.1 Postlaminectomy syndrome, not elsewhere classified; M19.90 Unspecified osteoarthritis, unspecified site; M25.561 Pain in right knee; M25.562 Pain in left knee; Z99.89 Dependence on other enabling machines and devices; Z98.890 Other specified postprocedural states; Z79.891 Long term (current) use of opiate analgesic; Z71.6 Tobacco abuse counseling; F17.200 Nicotine dependence, unspecified, uncomplicated | CPT/HCPCS: 99214 ==

== ENCOUNTER → 2021-10-07 14:12 | Outpatient (BNVA) | payer MEDICARE, MEDICAID, SELFPAY | PROVIDERS: PCP Nurse Practitioner Family; Visit Provider Anesthesiology | DX: G89.29 Other chronic pain (principal); M47.816 Spondylosis without myelopathy or radiculopathy, lumbar region; M48.062 Spinal stenosis, lumbar region with neurogenic claudication; M19.90 Unspecified osteoarthritis, unspecified site; M96.1 Postlaminectomy syndrome, not elsewhere classified; M51.17 Intervertebral disc disorders with radiculopathy, lumbosacral region; M25.561 Pain in right knee; M25.562 Pain in left knee; Z98.890 Other specified postprocedural states; Z79.891 Long term (current) use of opiate analgesic | CPT/HCPCS: 99214 ==

== ENCOUNTER 2021-11-14 13:54 | Outpatient (CLI) | payer MEDICARE, MEDICAID, SELFPAY ==
--- NOTE | 2021-11-14 14:03 | XR_ITS ---
WS: [email or web address] DEXA (DUAL ENERGY X-RAY ABSORPTIOMETRY) Bone mineral density was performed using a Viewpost machine. HISTORY: E55.9 - Vitamin D deficiency, unspecified COMPARISON: None available. Lumbar spine BMD (L1-L4): 1.268 g/cm2 T score: 0.7 Z score: 0.8 Total hip BMD: Left: 0.738 g/cm2. T score: -2.1 Z score: -2.0 Right: 0.682 g/cm2. T score: -2.6 Z score: -2.5 10 year probability of a major osteoporotic fracture is 8%. XR/XR DEXA axial skeleton* [id number] IMPRESSION: OSTEOPOROSIS based upon the WHO classification for females.
--- NOTE | 2021-11-14 14:06 | XR_ITS ---
WS: [email or web address] Cervical spine, AP, lateral views in flexion, extension and neutral position, 11/14/2021 Clinical Data: CERVICALGIA Comparison: Lateral views, 07/18/2021. Findings: The anterior cervical disc fusion from C5 through C7 remains intact. A corpectomy was perfo rmed from C5 through C7. There is anterior spurring at C4-C5. No compression fractures are noted. On flexion and extension there is no limitation of motion or instability of the fusion. No prevertebral soft tissue swelling is seen. XR/XR cervical spine 4-5V 45400 Impression: 1. Intact anterior cervical disc fusion from C5 through C7. 2. Negative for fusion instability or limitation of motion on flexion or extens ion. 3. Minimal osteoarthritis at C4-C5.
== END 2021-11-14 13:55 | disposition home or self-care (01) ==
PROVIDERS: Absent Provider Orthopaedic Surgery; PCP Nurse Practitioner Family; Visit Provider Internal Medicine
DX: E55.9 Vitamin D deficiency, unspecified (principal); M47.812 Spondylosis without myelopathy or radiculopathy, cervical region; M43.22 Fusion of spine, cervical region; M81.0 Age-related osteoporosis without current pathological fracture
CPT/HCPCS: 72050; 77080